=== PATIENT | male | born 1980 | race Caucasian/White ===

== ENCOUNTER 2016-08-19 15:24 | Emergency (ER) | payer MEDICAID ==
[2016-08-19 15:46] VITALS: BP 123/86
--- NOTE | 2016-08-19 16:47 | UC ---
Ear Complaint HPI - HPI Summary HPI Summary: Pt w/ acute onset Rt ear pain this morning. Pressure. Only other associated sx are sneezing w/ nasal congestion. Denies ST however swallowing makes Rt ear pain worse. Denies fever, chills, N/V, cough, chest pain, shortness of breath, QUEZADA/sinus pain, rash, neck pain. Nothing makes this better although he hasn't tried anything yet. Denies recent trauma to ear. H/o OM as a kid - nothing recently. NOTE: takes doxycycline for acne - History of Current Complaint Chief Complaint: UCEar Stated Complaint: EAR PAIN Time Seen by Provider: 08/19/16 16:23 Hx Obtained From: Patient - Allergies/Home Medications Allergies/Adverse Reactions: Allergies Allergy/AdvReac Type Severity Reaction Status Date / Time Prochlorperazine Allergy Severe See Comment Verified 08/19/16 15:39 [From Compazine] Home Medications: Home Medications Doxycycline (Monohydrate) [Doxycycline Monohydrate] 1 tab PO DAILY 08/19/16 [ History Confirmed 08/19/16] Meloxicam [Mobic] 1 tab PO BID 08/19/16 [History Confirmed 08/19/16] Pantoprazole TAB (NF) [Protonix TAB (NF)] 1 tab PO DAILY 08/19/16 [History Confirmed 08/19/16] QUEtiapine TAB* [Seroquel TAB*] 1 tab PO BEDTIME 08/19/16 [History Confirmed 06/06] PMH/Surg Hx/FS Hx/Imm Hx Previously Healthy: Yes Endocrine History Of: Denies: Diabetes, Thyroid Disease Cardiovascular History Of: Denies: Cardiac Disorders, Hypertension Respiratory History Of: Denies: COPD, Asthma GI/ History Of: Denies: Ulcer - Surgical History Surgical History: Yes Surgery Procedure, Year, and Place: Left Knee, exploratory and reconstructive. right wrist - exploratory and wafer procedure. 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 Smoking Status (MU): Current Every Day Smoker Type: Cigarettes Amount Used/How Often: 1/2 PPD Length of Time of Smoking/Using Tobacco: 20+ YEARS, 1/2 PPD Review of Systems Constitutional: Negative Skin: Negative Eyes: Negative ENT: Ear Ache - see HPI Respiratory: Negative Cardiovascular: Negative Gastrointestinal: Negative, Diarrhea - chronic d/t IBS - no change Motor: Negative Neurovascular: Negative Musculoskeletal: Negative Neurological: Negative Psychological: Negative All Other Systems Reviewed And Are Negative: Yes Physical Exam Triage Information Reviewed: Yes Appearance: Well-Appearing, No Pain Distress, Thin Vital Signs: Initial Vital Signs Temp 98.7 F 08/19/16 15:42 Pulse 73 08/19/16 15:42 Resp 16 08/19/16 15:42 BP 123/86 08/19/16 15:42 Pulse Ox 99 08/19/16 15:42 Vital Signs Reviewed: Yes Eye Exam: Normal Eyes: Positive: Conjunctiva Clear ENT Exam: Normal ENT: Positive: Hearing grossly normal, Pharynx normal - cobblestoning - no erythema, no edema, Nasal congestion - mild, Nasal drainage - scant w/ mild edema, TMs normal - EAC w/o erythema/edema. Negative: Pharyngeal erythema, Tonsillar swelling, Tonsillar exudate Dental Exam: Normal Dental: Negative: Abscess @ Neck exam: Normal Neck: Positive: Supple, Nontender, No Lymphadenopathy Respiratory Exam: Normal Respiratory: Positive: Lungs clear, Normal breath sounds, No respiratory distress. Negative: Crackles, Rhonchi, Stridor, Wheezing Cardiovascular Exam: Normal Cardiovascular: Positive: RRR Abdominal Exam: Normal Abdomen Description: Positive: Nontender, Soft Bowel Sounds: Positive: Present Musculoskeletal Exam: Normal Musculoskeletal: Positive: Strength Intact Neurological Exam: Normal Psychological Exam: Normal Skin Exam: Normal Ear Complaint Course/Dx - Course Course Of Treatment: Pt's ear pain appears to be the result of his nasal congestion. Advised to implement conservative care - if no relief, follow-up wt Pcp. - Differential Dx/Diagnosis Provider Diagnoses: Rt sided Otalgia, possible eustaschian tube d/o Discharge - Discharge Plan Condition: Stable Disposition: HOME Patient Education Materials: Earache (ED), Eustachian Tube Dysfunction (GEN) Referrals: [facility] PHYSICIAN REFERRAL [Outside] No Primary Care Phys,NOPCP [Primary Care Provider] - Additional Instructions: The cause of your ear pain today is suspected to be from nasal congestion. You may try ibuprofen as well as saline nasal spray, Sudafed and/or Afrin as directed to help with pain. Follow-up with PCP this week if symptoms persist. *If worse, return to UC or go to ED
== END 2016-08-19 16:49 | disposition home or self-care (01) ==
LOC: UCEAST 15:24
DX: H92.01 Otalgia, right ear (principal); R09.81 Nasal congestion; F17.210 Nicotine dependence, cigarettes, uncomplicated
CPT/HCPCS: 99211; G0463

== ENCOUNTER 2017-06-30 16:14 | Emergency (ER) | payer MEDICAID | END 2017-06-30 19:02 | disposition left against medical advice (07) | LOC: UCEAST 16:14 | DX: S00.521A Blister (nonthermal) of lip, initial encounter (principal); X58.XXXA Exposure to other specified factors, initial encounter; Y93.9 Activity, unspecified; Y92.9 Unspecified place or not applicable; Z53.21 Procedure and treatment not carried out due to patient leaving prior to being seen by health care provider ==

== ENCOUNTER 2017-09-07 19:49 | Emergency (ER) | payer MEDICAID ==
[2017-09-07 20:23] VITALS: BP 136/99
--- NOTE | 2017-09-07 20:49 | UC ---
Skin Complaint HPI - HPI Summary HPI Summary: Patient presents with over 2 month history of painless lesion on the inside of his left lower lip. He denies any trauma. He does not use smokeless tobacco. He is a smoker. Patient reports he periodically pokes it with a needle and drains serous fluid out of it. The lesion will then transiently reduce in size. He denies any fever, sweats, weight loss, weakness. - History of Current Complaint Chief Complaint: UCGeneralIllness Time Seen by Provider: 09/07/17 20:17 Stated Complaint: SORE IN MOUTH Hx Obtained From: Patient Onset/Duration: Sudden Onset, Lasting Weeks, Still Present Timing: Constant Onset Severity: Moderate Current Severity: Moderate Pain Intensity: 2 Pain Scale Used: 0-10 Numeric Location: Other - LEFT INNER LOWER LIP Aggravating Factor(s): Nothing Alleviating Factor(s): Nothing Associated Signs & Symptoms: Positive: Negative - Allergy/Home Medications Allergies/Adverse Reactions: Allergies Allergy/AdvReac Type Severity Reaction Status Date / Time MS Prochlorperazine Allergy Severe See Comment Verified 09/07/17 20:23 [From Compazine] Review of Systems Constitutional: Negative Skin: Other - LOWER LIP LESION Respiratory: Negative Cardiovascular: Negative Gastrointestinal: Negative All Other Systems Reviewed And Are Negative: Yes PMH/Surg Hx/FS Hx/Imm Hx Other GI/ History: HEP C Psychological History: Bipolar Disorder - Surgical History Surgical History: Yes Surgery Procedure, Year, and Place: Left Knee, exploratory and reconstructive. right wrist - exploratory and wafer procedure. 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 Smoking Status (MU): Heavy Every Day Tobacco Smoker Type: Cigarettes Amount Used/How Often: 1 PPD Length of Time of Smoking/Using Tobacco: 20+ YEARS, 1/2 PPD Physical Exam Triage Information Reviewed: Yes Appearance: Well-Appearing, No Pain Distress, Well-Nourished Vital Signs: Initial Vital Signs Temp 98.5 F 09/07/17 20:17 Pulse 86 09/07/17 20:17 Resp 18 09/07/17 20:17 BP 136/99 09/07/17 20:17 Pulse Ox 99 09/07/17 20:17 Vital Signs Reviewed: Yes Eyes: Positive: Conjunctiva Clear ENT: Positive: Hearing grossly normal Neck: Positive: Supple, Nontender, No Lymphadenopathy Respiratory Exam: Normal Cardiovascular Exam: Normal Abdomen Description: Positive: Soft Musculoskeletal: Positive: No Edema Neurological: Positive: Alert Psychological: Positive: Age Appropriate Behavior Skin: Positive: Other - 6MM DIAMETER NON TENDER, FIRM NODULE PALPATED INSIDE LOWER LIP JUST LEFT OF MIDLINE Course/Dx - Course Course Of Treatment: Unclear etiology of the lesion on the patient's lip. Advised it needs to be either biopsied or excised completely. Have referred him to oral surgery and failing that have also given contact information for general surgery and dermatology. - Diagnoses Provider Diagnoses: SKIN LESION INNER LOWER LIP, NOS Discharge - Sign-Out/Discharge Documenting (check all that apply): Discharge - Discharge Plan Condition: Stable Disposition: HOME Referrals: Joanne Basurto MD [Medical Doctor] - Js Rodriguez MD [Doctor of Dental Medicine] - Rafael Joy MD [Primary Care Provider] - If Needed Additional Instructions: The lesion in your mouth needs to be removed. Call oral surgery to schedule an appt to be seen. If they are not available or do not do this procedure try general surgery or dermatology. DERMATOLOGY IN [place] Dr. Tamara Langley Address: [address] [place] [address] [address] [place] [address] DR. JUAN CARLOS [facility] [address] [place] [id number] [address] DESHAUN MARIEE [facility], [facility] [address]; [address] [place] [address] - Billing Disposition and Condition Condition: STABLE Disposition: HOME
== END 2017-09-07 20:45 | disposition home or self-care (01) ==
LOC: UCEAST 19:49
DX: K13.0 Diseases of lips (principal); B19.20 Unspecified viral hepatitis C without hepatic coma; F31.9 Bipolar disorder, unspecified; Z88.8 Allergy status to other drugs, medicaments and biological substances; F17.210 Nicotine dependence, cigarettes, uncomplicated
CPT/HCPCS: 99211; G0463

== ENCOUNTER 2018-04-17 16:13 | Emergency (ER) | payer MEDICAID ==
[2018-04-17 16:28] VITALS: BP 125/101
--- NOTE | 2018-04-17 16:44 | UC ---
Skin Complaint HPI - HPI Summary HPI Summary: 38-year-old male comes to clinic today with a chief complaint of swelling and erythema on his left cheek. Patient does have a history of acne. Her last several days this area is gotten red and swollen. It's tender to palpation it' s less tender when you don't touch it. Chills feels well otherwise. He had a similar abscess that was quite large on the right side of his face that was I&D in the past. - History of Current Complaint Chief Complaint: UCSkin Time Seen by Provider: 04/17/18 16:27 Stated Complaint: SORE ON FACE Pain Intensity: 2 - Allergy/Home Medications Allergies/Adverse Reactions: Allergies Allergy/AdvReac Type Severity Reaction Status Date / Time prochlorperazine Allergy See Comment Verified 04/17/18 16:18 Home Medications: Home Medications Acetaminophen [Tylenol Extra Strength] 1,000 mg PO Q12HR PRN 04/17/18 [History Confirmed 04/17/18] Naproxen Sodium [Aleve] 2 tab PO Q12HR PRN 04/17/18 [History Confirmed 04/17/18] RiFAXimin* [Xifaxan*] 2 PO BID 04/17/18 [History] Review of Systems All Other Systems Reviewed And Are Negative: Yes Constitutional: Positive: Negative Skin: Positive: Other - SEE HPI Eyes: Positive: Negative ENT: Positive: Negative Respiratory: Positive: Negative Cardiovascular: Positive: Negative Gastrointestinal: Positive: Negative Motor: Positive: Negative Neurovascular: Positive: Negative Musculoskeletal: Positive: Negative Neurological: Positive: Negative Psychological: Positive: Negative Is Patient Immunocompromised?: No PMH/Surg Hx/FS Hx/Imm Hx Previously Healthy: Yes GI/ History: Gastroesophageal Reflux - Surgical History Surgical History: Yes Surgery Procedure, Year, and Place: Left Knee, exploratory and reconstructive. right wrist - exploratory and wafer procedure. 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 Smoking Status (MU): Heavy Every Day Tobacco Smoker Type: Cigarettes Amount Used/How Often: 1 PPD Length of Time of Smoking/Using Tobacco: 20+ YEARS, 1/2 PPD - Immunization History Most Recent Tetanus Shot: within 10 years Physical Exam Triage Information Reviewed: Yes Appearance: Well-Appearing, No Pain Distress, Well-Nourished Vital Signs: Initial Vital Signs Temp 99.0 F 04/17/18 16:23 Pulse 100 04/17/18 16:23 Resp 18 04/17/18 16:23 BP 125/101 04/17/18 16:23 Pulse Ox 96 04/17/18 16:23 Vital Signs Reviewed: Yes Eye Exam: Normal Eyes: Positive: Conjunctiva Clear ENT: Negative: Nasal congestion, Nasal drainage Neck exam: Normal Neck: Positive: Supple Respiratory: Positive: No respiratory distress Musculoskeletal Exam: Normal Musculoskeletal: Positive: Strength Intact, ROM Intact Neurological Exam: Normal Neurological: Positive: Alert, Muscle Tone Normal Psychological Exam: Normal Psychological: Positive: Age Appropriate Behavior Skin: Positive: Other - Are left cheek there is a 1 cm erythematous raised area that's tender to palpation which is consistent with a follicular abscess. At this time was not large enough for incision and drainage. Course/Dx - Diagnoses Provider Diagnosis: Abscess, Acne Discharge - Sign-Out/Discharge Documenting (check all that apply): Patient Departure All imaging exams completed and their final reports reviewed: No Studies - Discharge Plan Condition: Stable Disposition: HOME Prescriptions: DOXYcycline CAP(*) [DOXYcycline 100MG CAP(*)] 100 mg PO BID #20 cap Patient Education Materials: Abscess (ED) Referrals: Rafael Joy MD [Primary Care Provider] - Additional Instructions: FOLLOW UP WITH YOUR DOCTOR IF NOT COMPLETELY IMPROVED. GET RECHECKED FOR ANY WORSENING OF YOUR CONDITION OR QUESTIONS OR CONCERNS. - Billing Disposition and Condition Condition: STABLE Disposition: Home
== END 2018-04-17 16:51 | disposition home or self-care (01) ==
LOC: UCEAST 16:13
DX: L02.01 Cutaneous abscess of face (principal); L70.9 Acne, unspecified; Z88.8 Allergy status to other drugs, medicaments and biological substances; F17.210 Nicotine dependence, cigarettes, uncomplicated
CPT/HCPCS: 99212; G0463

== ENCOUNTER 2018-05-21 16:19 | Emergency (ER) | payer MEDICAID ==
--- NOTE | 2018-05-21 17:18 | ED ---
GI/ HPI - HPI Summary HPI Summary: This patient is a 38 year old M presenting to [facility] with a chief complaint of bright red blood in the stool for the last two days. He states that he has passed blood with every stool. The patient rates the pain 2/10 in severity. Patient denies constipation and diarrhea (increased from baseline). No hx of hemorrhoids. Does have chronic IBS and has had multiple colonoscopies constipation and diarrhea. Pt has chronic diarrhea. - History of Current Complaint Chief Complaint: EDGIBleed Time Seen by Provider: 05/21/18 17:07 Stated Complaint: RECTAL BLEEDING Hx Obtained From: Patient Onset/Duration: Started Days Ago, Still Present Timing: Intermittent Severity: Moderate Current Severity: Moderate Vaginal Bleeding Description: Bright Red Pain Intensity: 2 Associated Signs and Symptoms: Positive: Negative - constipation and diarrhea - Allergy/Home Medications Allergies/Adverse Reactions: Allergies Allergy/AdvReac Type Severity Reaction Status Date / Time adhesive Allergy See Comment Verified 05/21/18 16:26 prochlorperazine Allergy See Comment Verified 04/17/18 16:18 PMH/Surg Hx/FS Hx/Imm Hx Endocrine/Hematology History: Denies: Hx Diabetes, Hx Thyroid Disease Cardiovascular History: Denies: Hx Hypertension Respiratory History: Denies: Hx Asthma, Hx Chronic Obstructive Pulmonary Disease (COPD) GI History: Denies: Hx Ulcer Psychiatric History: Denies: Hx Eating Disorder - Surgical History Surgery Procedure, Year, and Place: Left Knee, exploratory and reconstructive. right wrist - exploratory and wafer procedure. 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 Smoking Status (MU): Heavy Every Day Tobacco Smoker Type: Cigarettes Amount Used/How Often: 1 PPD Length of Time of Smoking/Using Tobacco: 20+ YEARS, 1/2 PPD Review of Systems Negative: Fever, Chills Negative: Erythema Negative: Sore Throat Negative: Chest Pain Negative: Shortness Of Breath, Cough Gastrointestinal: Negative - constipation , Other - blood in stool Negative: Abdominal Pain, Vomiting, Diarrhea, Nausea Negative: dysuria, hematuria Negative: Myalgia, Edema Negative: Rash Neurological: Negative - dizziness All Other Systems Reviewed And Are Negative: Yes Physical Exam - Summary Physical Exam Summary: Constitutional: Well-developed, Well-nourished, Alert. (-) Distressed Skin: Warm, Dry HENT: Normocephalic; Atraumatic Eyes: Conjunctiva normal Neck: Musculoskeletal ROM normal neck. (-) JVD, (-) Stridor, (-) Tracheal deviation Cardio: Rhythm regular, rate normal, Heart sounds normal; Intact distal pulses; The pedal pulses are 2+ and symmetric. Radial pulses are 2+ and symmetric. (-) Murmur Pulmonary/Chest wall: Effort normal. (-) Respiratory distress, (-) Wheezes, (-) Rales Abd: Soft, (-) epigastric tenderness, (-) Distension, (-) Guarding, (-) Rebound Musculoskeletal: (-) Edema Lymph: (-) Cervical adenopathy Neuro: Alert, Oriented x3 Psych: Mood and affect Normal Rectal: no hemorrhoids only a small amount of mucus. Triage Information Reviewed: Yes Vital Signs On Initial Exam: Initial Vitals Temp Pulse Resp BP Pulse Ox 98.6 F 96 18 147/87 99 05/21/18 16:20 05/21/18 16:20 05/21/18 16:20 05/21/18 16:20 05/21/18 16:20 Vital Signs Reviewed: Yes Diagnostics - Vital Signs Vital Signs Temp Pulse Resp BP Pulse Ox 05/21/18 16:20 98.6 F 96 18 147/87 99 - Laboratory Result Diagrams: 05/21/18 17:49 05/21/18 17:49 Lab Statement: Any lab studies that have been ordered have been reviewed, and results considered in the medical decision making process. GIGU Course/Dx - Course Assessment/Plan: This patient is a 38 year old M presenting to [facility] with a chief complaint of bright red blood in the stool for the last two days. He states that he has passed blood with every stool. The patient rates the pain 2/ 10 in severity. Patient denies constipation and diarrhea (increased from baseline). No hx of hemorrhoids. Does have chronic IBS and has had multiple colonoscopies constipation and diarrhea. Pt has chronic diarrhea. . Bloodwork obtained. Despite experiencing 3 days of bleeding the hemoglobin is completely normal. There is no huy blood on exam and vitals are stable. Patient will be discharged and follow up from GI. The patient is agreeable with this plan. - Diagnoses Provider Diagnoses: Rectal bleeding Discharge - Sign-Out/Discharge Documenting (check all that apply): Patient Departure - departed - Discharge Plan Condition: Stable Disposition: HOME Patient Education Materials: Rectal Bleeding (ED) Referrals: Estefany Degroot MD [Medical Doctor] - Annita Grace MD [Medical Doctor] - 2 Days Additional Instructions: Please follow up with your GI doctor is 2-3 days. If they cannot get you in I have provided you with the GI doctor guncotton packer. RETURN TO THE EMERGENCY DEPARTMENT FOR CHANGING OR WORSENING SYMPTOMS. - Billing Disposition and Condition Condition: STABLE Disposition: Home - Attestation Statements Document Initiated by Tello: Yes Documenting Scribe: Dakota Joseph Provider For Whom Tello is Documenting (Include Credential): Hank Kelly MD Scribe Attestation: Dakota Salgado , scribed for Hank Kelly MD on 05/27/18 at 0728. Scribe Documentation Reviewed: Yes Provider Attestation: The documentation as recorded by the Dakota moses accurately reflects the service I personally performed and the decisions made by Hank santos MD Status of Scribe Document: Viewed
[2018-05-21 17:57] LABS: ABS Basophils 0 10^3/ul (0-0.2); ABS Eosinophils 0.1 10^3/ul (0-0.6); ABS Lymphocytes 1.1 10^3/ul (1.0-4.8); ABS Monocytes 0.3 10^3/ul (0-0.8); ABS Neutrophils 4.1 10^3/ul (1.5-7.7); ABS Nucleated RBC 0 10^3/ul; Hematocrit 48 % (42-52); Hemoglobin 16.5 g/dl (14.0-18.0); Lymphocyte % 19.3 %; Mean Corpuscular HGB Conc 34 g/dl (31-36); Mean Corpuscular Hemoglobin 30 pg (27-31); Mean Corpuscular Volume 87 fL (80-94); Mean Platelet Volume 7.8 fL (7.4-10.4); Nucleated Red Blood Cells % 0.1; Platelet Count 221 10^3/ul (150-450); Red Blood Count 5.54 10^6/ul (4.00-5.40); Red Cell Distribution Width 13 % (10.5-15); White Blood Count 5.6 10^3/ul (3.5-10.8)
[2018-05-21 18:15] LABS: ALT 13 U/L (7-52); AST 13 U/L (13-39); Albumin 4.4 g/dL (3.2-5.2); Alkaline Phosphatase 49 U/L (34-104); Anion Gap 4 mmol/L (2-11); Blood Urea Nitrogen 21 mg/dL (6-24); C Reactive Protein < 1.00 mg/L (<8.01); CO2 Carbon Dioxide 30 mmol/L (22-32); Calcium 9.6 mg/dL (8.6-10.3); Chloride 105 mmol/L (101-111); EGFR Non-African American 78.2 (>60); Globulin 2.2 g/dL (2-4); Glucose 86 mg/dL (70-100); Potassium 4.5 mmol/L (3.5-5.0); Sodium 139 mmol/L (135-145); Total Protein 6.6 g/dL (6.4-8.9)
[2018-05-21 18:45] VITALS: BP 132/91
== END 2018-05-21 18:44 | disposition home or self-care (01) ==
LOC: ED 16:19
DX: K62.5 Hemorrhage of anus and rectum (principal); Z88.8 Allergy status to other drugs, medicaments and biological substances; Z91.048 Other nonmedicinal substance allergy status; F17.210 Nicotine dependence, cigarettes, uncomplicated
CPT/HCPCS: 36415; 80053; 82272; 83605; 83690; 85025; 86140; 99282

== ENCOUNTER 2019-02-10 22:54 | Emergency (ER) | payer MEDICAID ==
[2019-02-10 23:02] VITALS: BP 141/102
--- OUTSIDE RECORDS SUMMARY | 2019-02-10 23:06 | XMS REPORT | Summary of Care ---
:1980 Author Organization [facility] Address [address] [facility] [place] [address] Care Team Providers Name Role Phone Rafael Joy MD Primary Care Provider Reason for Visit Reason Comments Follow Up IBS Encounter Details Date Type Department Care Team Description 01/09/2019 Office Visit Jeff Steiner Irritable bowel Gastroenterology/Eneida Frausto NP syndrome with tology 1 KENNEY SQ diarrhea (Primary Dx) [address] [facility] [place] [place] [address] [place] [address] [phone] Allergies Active Allergy Reactions Severity Noted Date Comments Compazine Cardiac Reaction High 10/05/2015 Bradycardia documented as of this encounter (statuses as of 01/09/2019) Medications Medication Sig Dispensed Refills Start Date End Date Status pantoprazole take 1 90 Tab 3 07/30/2018 Active (PROTONIX) 40 MG tablet by Oral Tab EC mouth once daily acetaminophen Take 500 mg 0 Active (TYLENOL) 500 MG by mouth Oral Tab EVERY SIX HOURS NEEDED for Pain. Quetiapine Fumarate take 1 to 2 60 Tab 4 12/02/2018 Active (SEROQUEL) 50 MG tablets by Oral TabIndications: mouth once Chronic insomnia daily at bedtime cyclobenzaprine Take 1 Tab 30 Tab 5 12/04/2018 Active (FLEXERIL) 10 MG by mouth Oral Tab EVERY BEDTIME. diclofenac Take 50 mg 0 Active (VOLTAREN) 50 MG by mouth Oral Tab EC TWICE DAILY. diphenoxylate-atropi Take 1 Tab 90 Tab 5 01/09/2019 Active ne (LOMOTIL) by mouth 2.5-0.025 MG Oral THREE TIMES TabIndications: DAILY. Max Irritable bowel Daily syndrome with Amount: 3 diarrhea Tabs. diphenoxylate-atropi Take 1 Tab 90 Tab 0 12/04/2018 Discontinued ne (LOMOTIL) by mouth 9 (Reorder) 2.5-0.025 MG Oral THREE TIMES TabIndications: DAILY. Max Irritable bowel Daily syndrome with Amount: 3 diarrhea Tabs. documented as of this encounter (statuses as of 01/09/2019) Active Problems Problem Noted Date Chronic hepatitis C without hepatic coma 11/29/2017 Chronic insomnia 10/05/2016 History of hepatitis C 12/16/2014 Overview: Secondary to IVDU, s/p Harvoni [address] Grace Substance abuse 04/21/2014 [facility]: [facility] November 2014 counseling three times weekly Clean since 10/2014 IBS (irritable bowel syndrome) 04/21/2014 Overview: chronic abdominal pain, negative endoscopies 2009 and prior, failed symptomatic medical management, complicated by prescription and IV drug abuse Tobacco use disorder 04/21/2014 Overview: 1/4 pack per day began age 13 Failed varenicline documented as of this encounter (statuses as of 01/09/2019) Social History Tobacco Use Types Packs/Day Years Used Date Current Every Day Smoker Cigarettes 0.75 22 Smokeless Tobacco: Never Used Alcohol Use Drinks/Week oz/Week Comments No Sex Assigned at Date Recorded Not on file Job Start Date Occupation Industry Not on file Not on file Not on file Travel History Travel Start Travel End No recent travel history available. documented as of this encounter Last Filed Vital Signs Vital Sign Reading Time Taken Comments Blood Pressure 122/70 01/09/2019 2:43 PM EDT Pulse 80 01/09/2019 2:43 PM EDT Temperature - - Respiratory Rate - - Oxygen Saturation - - Inhaled Oxygen Concentration - - Weight 77.1 kg (170 lb) 01/09/2019 2:43 PM EDT Height 180.3 cm (5' 11") 01/09/2019 2:43 PM EDT Body Mass Index 23.71 01/09/2019 2:43 PM EDT documented in this encounter Patient Instructions Patient InstructionsGina Steiner NP - 01/09/2019 2:40 PM EDT1. Continue the Lomotil as directed, lowest effective dose is always advised 2. Follow up in 6 months, sooner with any changes Thank you for choosing the [facility] for your needs today! -Gina Steiner N.P. , Please call if you need to cancel or change your appt. time. Thank you for choosing [facility] for your health care needs, and for consulting with [facility] today. You may receive a survey following this visit, or after an upcoming hospital stay. As easy as it is to feel overloaded with surveys, we are required to send them out randomly and they do provide important feedback so that we may serve your needs in the best way. Please do take the few minutes required to complete the survey if you receive one. We get them too, after seeing the doctor, and they only take a few minutes to complete. documented in this encounter Progress Notes Gina Steiner NP - 01/09/2019 2:40 PM EDT PATIENT: Tim Felton : 1980 DATE OF SERVICE: 01/09/2019 REFERRING PRACTITIONER: Gina Steiner PRIMARY CARE PROVIDER: Rafael Joy CHIEF COMPLAINT: Chief Complaint Patient presents with Follow Up IBS Subjective HISTORY OF PRESENT ILLNESS: Tim Felton is a 38-y.o. male who presents for a follow-up. He reports abdominal pain, diarrhea cycles. Currently on Lomotil TID with 50% improvement in symptoms. Defecation occurs 5 time(s) per day and is described as being loose. He had previously failed several other medications in the past, ie. Viberzi, Imodium, hyoscamine, Xifaxan, fiber supplements and dietary modification. Last colonoscopy 2015 was unremarkable. Denies heartburn, dysphagia, fatigue, nausea, vomiting, melena, hamatemesis, hematochezia, constipation, diarrhea, jaundice, fevers, chills, night sweats, weight loss, easy bruising, chest pain, shortness of breath, dysuria, hematuria , pyuria, joint pains, acholic stools, dark urine or systemic pruritis. Past Medical History: Diagnosis Date GERD (gastroesophageal reflux disease) High cholesterol Past Surgical History: Procedure Laterality Date COLONOSCOPY N/A 01/17/2016 Procedure: COLONOSCOPY with biopsies; Surgeon: Tim Olsen MD FAC; Location: [facility] MAIN OR COLONOSCOPY DIAGNOSTIC approx. 2 years ago EGD (KENNEY / NON KENNEY) 3-4 years ago No family history on file. Current Outpatient Medications Medication Sig acetaminophen (TYLENOL) 500 MG Oral Tab Take 500 mg by mouth EVERY SIX HOURS NEEDED for Pain. cyclobenzaprine (FLEXERIL) 10 MG Oral Tab Take 1 Tab by mouth EVERY BEDTIME. diclofenac (VOLTAREN) 50 MG Oral Tab EC Take 50 mg by mouth TWICE DAILY. diphenoxylate-atropine (LOMOTIL) 2.5-0.025 MG Oral Tab Take 1 Tab by mouth THREE TIMES DAILY.Max Daily Amount: 3 Tabs. pantoprazole (PROTONIX) 40 MG Oral Tab EC take 1 tablet by mouth once daily Quetiapine Fumarate (SEROQUEL) 50 MG Oral Tab take 1 to 2 tablets by mouth once daily at bedtime No current facility-administered medications for this visit. Allergies Allergen Reactions Compazine Cardiac Reaction Bradycardia Social History Socioeconomic History Marital status: Single Spouse name: Not on file Number of children: Not on file Years of education: Not on file Highest education level: Not on file Occupational History Not on file Social Needs Financial resource strain: Not on file Food insecurity: Worry: Not on file Inability: Not on file Transportation needs: Medical: Not on file Non-medical: Not on file Tobacco Use Smoking status: Current Every Day Smoker Packs/day: 0.75 Years: 22.00 Pack years: 16.50 Types: Cigarettes Smokeless tobacco: Never Used Substance and Sexual Activity Alcohol use: No Drug use: No Comment: heroin, marijuana, clean 90 days as of 12-17-14 Sexual activity: Yes Partners: Female Lifestyle Physical activity: Days per week: Not on file Minutes per session: Not on file Stress: Not on file Relationships Social connections: Talks on phone: Not on file Gets together: Not on file Attends orthodox service: Not on file Active member of club or organization: Not on file Attends meetings of clubs or organizations: Not on file Relationship status: Not on file Intimate partner violence: Fear of current or ex partner: Not on file Emotionally abused: Not on file Physically abused: Not on file Forced sexual activity: Not on file Other Topics Concern Back Care Not Asked Bike Helmet Not Asked Blood Transfusions Not Asked Caffeine Concern No Exercise Yes Comment: gym workouts [employer] Hobby Hazards Not Asked International Travel Not Asked Service Not Asked Occupational Exposure Not Asked Seat Belt Not Asked Self-Exams Not Asked Sleep Concern No Special Diet No Stress Concern No Weight Concern No Social History Narrative Living with parents in [facility] One daughter age 6 Has girlfriend . Unemployed. Disabled by irritable bowel syndrome. REVIEW OF SYSTEMS: All remaining review of systems was negative except for as noted in the history of present illness/subjective. Objective PHYSICAL EXAMINATION: VITALS: BP 122/70 (BP Location: Right arm, Patient Position: Sitting) | Pulse 80 | Ht 5' 11" (1.803 m) | Wt 170 lb (77.1 kg) | BMI 23.71 kg/m Body mass index is 23.71 kg/m. GENERAL: alert, oriented, no acute distress. HEENT: No scleral icterus, MMM Psych: Affect normal Neck: no lymphadenopathy LUNGS: clear to auscultation bilaterally. HEART: regular rhythm, no murmurs, no gallops, no rubs. ABDOMEN: general exam: soft, non-tender, non-distended, without masses or organomegaly, normal active bowel sounds, Malave's sign negative. Extrmities: no edema Skin: clear Neuro: gait normal, a&o x 3 RECTAL: exam deferred. Plan IMPRESSION/PLAN: ICD-9-CM ICD-10-CM 1. Irritable bowel syndrome with diarrhea 564.1 K58.0 diphenoxylate-atropine ( LOMOTIL) 2.5-0.025 MG Oral Tab Patient Instructions 1. Continue the Lomotil as directed, lowest effective dose is always advised 2. Follow up in 6 months, sooner with any changes Thank you for choosing the [facility] for your needs today! -Gina Steiner N.P. , Please call if you need to cancel or change your appt. time. Thank you for choosing [facility] for your health care needs, and for consulting with [facility] today. You may receive a survey following this visit, or after an upcoming hospital stay. As easy as it is to feel overloaded with surveys, we are required to send them out randomly and they do provide important feedback so that we may serve your needs in the best way. Please do take the few minutes required to complete the survey if you receive one. We get them too, after seeing the doctor, and they only take a few minutes to complete. Author: Gina Steiner NP 01/09/2019 15:11 documented in this encounter Plan of Treatment Date Type Specialty Care Team Description 01/21/2019 Office Visit Gastroenterology Gina Steiner NP [address] [place] [place] [address] [phone] 01/27/2019 Office Visit Physical Therapy Annita Robert, PT [address] [place] [address] 01/30/2019 Office Visit Physical Therapy Annita Robert, PT [address] [place] [address] 02/03/2019 Office Visit Physical Therapy Annita Robert, PT [address] [place] [address] 02/06/2019 Office Visit Physical Therapy Annita Robert, PT [address] [place] [address] 02/11/2019 Office Visit Physical Therapy Annita Robert, PT [address] [place] [address] [phone] 07/10/2019 Office Visit Gastroenterology Gina Steiner NP [address] [place] [place] [address] [phone] Health Maintenance Due Date Last Done Comments PNEUMOCOCCAL 0-64 YRS ( - 02/02/1984 PPSV23) HIV SCREENING 1993 LIPID DISORDER SCREENING 02/02/1996 INFLUENZA VACCINE (#1) 2019 DEPRESSION SCREENING 12/05/2019 12/04/2018 HPV IMMUNIZATION SERIES Aged Out No longer eligible based on patient's age to complete this topic MENINGOCOCCAL VACCINE IMM Aged Out No longer eligible based on patient's age to complete this topic documented as of this encounter Results Not on filedocumented in this encounter Visit Diagnoses Diagnosis Irritable bowel syndrome with diarrhea - Primary Irritable bowel syndrome documented in this encounter Additional Health Concerns Infection Noted Time Resolved Time C Diff 02/16/2018 6:18 AM EDT documented as of this encounter Insurance Payer Benefit Plan / Subscriber ID Effective Dates Phone Address Type Group [place] xxxxxxxx 2016-Present Medicaid [place] Guarantor Name Account Type Relation to Date of Phone Billing Patient Address Tim Felton Personal/Family [address] (Home) [place], [facility] (Work) documented as of this encounter
--- OUTSIDE RECORDS SUMMARY | 2019-02-10 23:06 | XMS REPORT | Summary of Care ---
:1980 Author Organization [facility] Address [address] [place] [place] [place] [address] Care Team Providers Name Role Phone Rafael Joy MD Primary Care Provider Reason for Visit Reason Comments Neck Pain Encounter Details Date Type Department Care Team Description 01/27/2019 Office Visit [facility] - Annita Robert, TONYA Cervicalgia (Primary [place] [facility] [address] Dx) Therapy [place] [address] [employer] [facility] [phone] [address] [place] [address] Allergies Active Allergy Reactions Severity Noted Date Comments Compazine Cardiac Reaction High 10/05/2015 Bradycardia documented as of this encounter (statuses as of 01/27/2019) Medications Medication Sig Dispensed Refills Start Date End Date Status pantoprazole (PROTONIX) take 1 tablet by 90 Tab 3 07/30/2018 Active 40 MG Oral Tab EC mouth once daily acetaminophen (TYLENOL) Take 500 mg by 0 Active 500 MG Oral Tab mouth EVERY SIX HOURS NEEDED for Pain. Quetiapine Fumarate take 1 to 2 60 Tab 4 12/02/2018 Active (SEROQUEL) 50 MG Oral tablets by mouth TabIndications: Chronic once daily at insomnia bedtime cyclobenzaprine Take 1 Tab by 30 Tab 5 12/04/2018 Active (FLEXERIL) 10 MG Oral mouth EVERY Tab BEDTIME. diclofenac (VOLTAREN) 50 Take 50 mg by 0 Active MG Oral Tab EC mouth TWICE DAILY. diphenoxylate-atropine Take 1 Tab by 90 Tab 5 01/09/2019 Active (LOMOTIL) 2.5-0.025 MG mouth THREE Oral TabIndications: TIMES DAILY. Max Irritable bowel syndrome Daily Amount: 3 with diarrhea Tabs. documented as of this encounter (statuses as of 01/27/2019) Active Problems Problem Noted Date Chronic hepatitis C without hepatic coma 11/29/2017 Chronic insomnia 10/05/2016 History of hepatitis C 12/16/2014 Overview: Secondary to IVDU, s/p Harvoni [address] Grace Substance abuse 04/21/2014 Overview: Heroin IVDA 2013 S/p [place] [facility] stay October 2014 Alcohol and drug [place] [facility] November 2014 counseling three times weekly Clean since 10/2014 IBS (irritable bowel syndrome) 04/21/2014 Overview: chronic abdominal pain, negative endoscopies 2009 and prior, failed symptomatic medical management, complicated by prescription and IV drug abuse Tobacco use disorder 04/21/2014 Overview: 1/4 pack per day began age 13 Failed varenicline documented as of this encounter (statuses as of 01/27/2019) Social History Tobacco Use Types Packs/Day Years [...] of this encounter Last Filed Vital Signs Not on filedocumented in this encounter Progress Notes Annita Robert, PT - 01/27/2019 4:00 PM EDT [facility] Treatment Note Outpatient Physical Therapy [facility] [address] [place] [id number] Treatment Number: 2 Referring Physician: Rafael Joy Primary Diagnosis: ICD-9-CM ICD-10-CM 1. Cervicalgia 723.1 M54.2 Time In: 1600 Time Out: 1630 Pain at Start of Care: 3 Pain at End of Care: 07/28 Subjective Comments: He had a bad day on Sunday had to take a long shower to loosen up the neck muscles. Interventions: Therapeutic Exercises (00871) Number of Exercises?: 3 Total Minutes (all Therapeutic Exercise): 10 Exercise #1 Exercise Name: seated trapezius stretch Reason for Exercise: Functional Mobility;Muscle Performance Location/Body Area: Cervical Spine;Shoulder Exercise #2 Exercise Name: doorway stretches Reason for Exercise: Functional Mobility;Muscle Performance;Pain Control Location/Body Area: Cervical Spine;Shoulder Manual Therapy (32300) Soft Tissue Mobilization: Manual Tissue Mobilization Soft Tissue Mobilization Details: left trap Total Minutes (All Manual Therapy): 20 Assessment: Today with left rotation it was full and no rastafari pain. He sits with head and chin in protraction working on retraction. He was given written instructions for stretches after we reviewed them Plan for Next Visit: assess posture and stretches and start b/p cuff. Total UNTIMED Code Treatment Minutes: Total TIMED Code Treatment Minutes: 30 Total Treatment Minutes: 30 Author: Annita Robert, PT 01/27/2019 16:26 documented in this encounter Plan of Treatment Date Type Specialty Care Team Description 01/30/2019 Office Visit Physical Therapy Annita Robert, PT [address] [place] [address] [phone] 02/03/2019 Office Visit Physical Therapy Annita Robert, PT [address] [place] [address] [phone] 02/06/2019 Office Visit Physical Therapy Annita Robert, PT [address] [place] [address] [phone] 02/11/2019 Office Visit Physical Therapy Annita Robert, PT [address] [place] [address] [phone] 07/10/2019 Office Visit Gastroenterology Gina Steiner, GRISELDA [address] [place] [place] [address] [phone] Health Maintenance Due Date Last Done Comments PNEUMOCOCCAL 0-64 YRS (1 of 1 - 02/02/1984 PPSV23) HIV SCREENING 1993 LIPID [...] filedocumented in this encounter Visit Diagnoses Diagnosis Cervicalgia - Primary documented in this encounter Additional Health Concerns Infection Noted Time Resolved Time C Diff 02/16/2018 6:18 AM EDT documented as of this encounter Insurance Payer Benefit Plan / Subscriber ID Effective Dates Phone Address Type Group [place] xxxxxxxx 2016-Present [place] (Work) documented as of this encounter
--- OUTSIDE RECORDS SUMMARY | 2019-02-10 23:06 | XMS REPORT | Summary of Care ---
:1980 Author Organization [facility] Address [address] [place] [address] Care Team Providers Name Role Phone Rafael Joy MD Primary Care Provider Reason for Visit Reason Comments Neck Pain Encounter Details Date Type Department Care Team Description 02/06/2019 Office Visit [facility] - Annita Robert, TONYA Cervicalgia (Primary [place] [facility] [address] Dx) Therapy [place] [address] [facility] [phone] [place] [address] Allergies Active Allergy Reactions Severity Noted Date Comments Compazine Cardiac Reaction High 10/05/2015 Bradycardia documented as of this encounter (statuses as of 02/06/2019) Medications Medication Sig Dispensed Refills Start Date End Date Status acetaminophen (TYLENOL) Take 500 mg by 0 [...] syndrome Daily Amount: 3 with diarrhea Tabs. pantoprazole (PROTONIX) Take 1 Tab by 90 Tab 3 01/30/2019 Active 40 MG Oral Tab EC mouth DAILY. documented as of this encounter (statuses as of 02/06/2019) Active Problems Problem Noted Date Chronic hepatitis C without hepatic coma 11/29/2017 Chronic insomnia 10/05/2016 History of hepatitis C 12/16/2014 Overview: Secondary to IVDU, s/p Harvoni [address] Grace Substance abuse 04/21/2014 Overview: Heroin IVDA 2013 S/p [place] rehab stay October 2014 Alcohol and drug [place] [facility] November 2014 counseling three times weekly Clean since 10/2014 IBS (irritable bowel syndrome) 04/21/2014 Overview: chronic abdominal pain, negative endoscopies 2009 and prior, failed symptomatic medical management, complicated by prescription and IV drug abuse Tobacco use disorder 04/21/2014 Overview: 1/4 pack per day began age 13 Failed varenicline documented as of this encounter (statuses as of 02/06/2019) Social History Tobacco Use Types Packs/Day Years [...] encounter Progress Notes Annita Robert, PT - 02/06/2019 4:00 PM EDT [facility] Treatment Note Outpatient Physical Therapy Services [facility] [address] [place] [phone] Treatment Number: 4 Referring Physician: Rafael Joy Primary Diagnosis: ICD-9-CM ICD-10-CM 1. Cervicalgia 723.1 M54.2 Time In: 1600 Time Out: 1630 Pain at Start of Care: 3/10 Pain at End of Care: 210 Subjective Comments: Overall he feels 25% better. He is having some low back pain today. Interventions: Therapeutic Exercises (91639) Total Minutes (all Therapeutic Exercise): 20 Exercise #1 Exercise Name: supine anterior neck flexors Reason for Exercise: Other (see Comments)(stability) Location/Body Area: Cervical Spine Exercise #2 Exercise Name: neck extensors with b/p cuff Reason for Exercise: Strengthening Location/Body Area: Cervical Spine Exercise #3 Exercise Name: doorway stretches Reason for Exercise: Strengthening;Functional Mobility;Pain Control Location/Body Area: Cervical Spine Manual Therapy (40754) Soft Tissue Mobilization: Manual Tissue Mobilization Soft Tissue Mobilization Details: left trap Total Minutes (All Manual Therapy): 10 Assessment: I modified some exercise to avoid low back irritation. He is doing well with extension in the neck and the b/p cuff isometrics. He will add the seated isometrics for the weekend. Plan for Next Visit: Assess and treat Total UNTIMED Code Treatment Minutes: Total TIMED Code Treatment Minutes: 30 Total Treatment Minutes: 30 Author: Annita Robert, PT 02/06/2019 16:18 documented in this encounter Plan of Treatment Date Type Specialty Care Team Description 02/11/2019 Office Visit Physical Therapy Annita Robert, PT [address] [place] [address] [phone] 07/10/2019 Office Visit Gastroenterology Gina Steiner, [employer] [address] [place] [address] [phone] Health Maintenance Due Date Last Done Comments PNEUMOCOCCAL 0-64 YRS (1 of - 02/02/1984 PPSV23) HIV SCREENING 1993 LIPID [...]
--- OUTSIDE RECORDS SUMMARY | 2019-02-10 23:06 | XMS REPORT | Summary of Care ---
:1980 Author Organization [facility] Address [address] [place] [place] [address] Care Team Providers Name Role Phone Rafael Joy MD Primary Care Provider Reason for Visit Reason Comments Neck Pain Encounter Details Date Type Department Care Team Description 01/30/2019 Office Visit [facility] - Annita Robert, TONYA Cervicalgia (Primary [place] [facility] [address] Dx) Therapy [place] [address] [employer] [facility] [phone] [address] [place] [address] Allergies Active Allergy Reactions Severity Noted Date Comments Compazine Cardiac Reaction High 10/05/2015 Bradycardia documented as of this encounter (statuses as of 01/30/2019) Medications Medication Sig Dispensed Refills Start Date End Date Status acetaminophen Take 500 mg 0 Active (TYLENOL) [...] Daily syndrome with Amount: 3 diarrhea Tabs. pantoprazole take 1 90 Tab 3 01/28/2019 Discontinued (PROTONIX) 40 MG tablet by 9 (Reorder) Oral Tab EC mouth once daily documented as of this encounter (statuses as of 01/30/2019) Active Problems Problem Noted Date Chronic hepatitis C without hepatic coma 11/29/2017 Chronic insomnia 10/05/2016 History of hepatitis C 12/16/2014 Overview: Secondary to IVDU, s/p Harvoni [address] Grace Substance abuse 04/21/2014 Overview: Heroin IVDA 2013 S/p [place] rehab stay October 2014 Alcohol and drug [place] [facility] November 2014 counseling three times weekly Clean since 10/2014 IBS (irritable bowel syndrome) 04/21/2014 Overview: chronic abdominal pain, negative endoscopies 2009 and prior, failed symptomatic medical management, complicated by prescription and IV drug abuse Tobacco use disorder 04/21/2014 Overview: 1/4 pack per day began age 13 Failed varenicline documented as of this encounter (statuses as of 01/30/2019) Social History Tobacco Use Types Packs/Day Years [...] encounter Progress Notes Annita Robert, PT - 01/30/2019 4:00 PM EDT [facility] Treatment Note Outpatient Physical [facility] [address] [place] [phone] Treatment Number: 3 Referring Physician: Rafael Joy Primary Diagnosis: ICD-9-CM ICD-10-CM 1. Cervicalgia 723.1 M54.2 Time In: 1600 Time Out: 1630 Pain at Start of Care: 2/10 Pain at End of Care: 2 Subjective Comments: He has about the same pain, no headaches. Yesterday he had right sided neck pain Which is opposite, no idea why. Interventions: Therapeutic Exercises (03592) Number of Exercises?: 5 Total Minutes (all Therapeutic Exercise): 20 Exercise #1 Exercise Name: supine anterior neck flexors Reason for Exercise: Other (see Comments)(stability) Location/Body Area: Cervical Spine Exercise #2 Exercise Name: neck extensors with b/p cuff Reason for Exercise: Strengthening Location/Body Area: Cervical Spine Exercise #3 Exercise Name: neck extension test head up to T5 off table Reason for Exercise: Strengthening Location/Body Area: Cervical Spine Details: kareem 10 sec in did 30 Manual Therapy (53954) Soft Tissue Mobilization: Manual Tissue Mobilization Soft Tissue Mobilization Details: left trap Total Minutes (All Manual Therapy): 10 Assessment: working on stabilization and strength of the neck. He did well with anterior neck flexors without firing scms. He has a b/p cuff at home and will use this for extensors. Plan for Next Visit: Assess and treat Total UNTIMED Code Treatment Minutes: Total TIMED Code Treatment Minutes: 30 Total Treatment Minutes: 30 Author: Annita Robert PT 01/30/2019 16:21 documented in this encounter Plan of Treatment Date Type Specialty Care Team Description 02/03/2019 [place] [address] [place] [address] [phone] 02/06/2019 Office [place] [address] [place] [address] [phone] 02/11/2019 Office Visit Physical Therapy Annita Robert, PT [address] [place] [address] [phone] 07/10/2019 Office Visit Gastroenterology Gina Steiner, GRISELDA [address] [place] [place] [address] [phone] Health Maintenance Due Date Last Done Comments [...]
--- OUTSIDE RECORDS SUMMARY | 2019-02-10 23:06 | XMS REPORT | Summary of Care ---
:1980 Author Organization [facility] Address [address] [place] [address] Care Team Providers Name Role Phone Rafael Joy MD Primary Care Provider Reason for Visit Reason Comments Neck Pain Encounter Details Date Type Department Care Team Description 01/08/2019 Office Visit [facility] - Annita Robert, TONYA Cervicalgia (Primary [place] [facility] [address] Dx) [place] [address] [address] [employer] [facility] [phone] [place] [address] Allergies Active Allergy Reactions Severity Noted Date Comments Compazine Cardiac Reaction High 10/05/2015 Bradycardia documented as of this encounter (statuses as of 01/08/2019) Medications Medication Sig Dispensed Refills Start Date [...] 10 MG Oral mouth EVERY Tab BEDTIME. diphenoxylate-atropine Take 1 Tab by 90 Tab 0 12/04/2018 Active (LOMOTIL) 2.5-0.025 MG mouth THREE Oral TabIndications: TIMES DAILY. Max Irritable bowel syndrome Daily Amount: 3 with diarrhea Tabs. diclofenac (VOLTAREN) 50 Take 50 mg by 0 Active MG Oral Tab EC mouth TWICE DAILY. documented as of this encounter (statuses as of 01/08/2019) Active Problems Problem Noted Date Chronic hepatitis C without hepatic coma 11/29/2017 Chronic insomnia 10/05/2016 History of hepatitis C 12/16/2014 Overview: Secondary to IVDU, s/p Harvoni [address] Grace Substance abuse 04/21/2014 Overview: Heroin IVDA 2013 S/p [place] rehab stay October 2014 Alcohol and drug [place] [facility] November 2014 counseling three times weekly Clean since 10/2014 IBS (irritable bowel syndrome) 04/21/2014 Overview: chronic abdominal pain, negative endoscopies 2009 and prior, failed symptomatic medical management, complicated by prescription and IV drug abuse Tobacco use disorder 04/21/2014 Overview: 1/4 pack per day began age 13 Failed varenicline documented as of this encounter (statuses as of 01/08/2019) Social History Tobacco Use Types Packs/Day Years [...] encounter Progress Notes Annita Robert, PT - 01/08/2019 3:30 PM EDT [facility] Initial Evaluation Outpatient Physical Therapy Services [facility] [address] [place] [address] Patient: Tim Felton : 1980 Date of Service: 01/08/2019 Referring Physician: Rafael Joy Primary Diagnosis: ICD-9-CM ICD-10-CM 1. Cervicalgia 723.1 M54.2 Time In: 1530 Time Out: 1630 Subjective: He is a 38-y.o.-year-old male who presents for outpatient physical therapy with a chiefcomplaint of neck pain present for 4 years. He describes weekly headaches that last 2-3 days and areon bilateral temples 7/10 intensity.He feels "cold feeling creeping around neck into cheeks and under his eyes". He had once instance of stretching his neck himself to the left and lost vision for 30sec. Prior Functional Status: independent Current Functional Status: independent Abuse/Neglect Screening Are you being threatened or hurt by anyone? : No FOTO Data FOTO Intake Completed: Yes Intake FS Score: 36 Predicted FS Score: 51 Objective: Past Medical History: Diagnosis Date GERD (gastroesophageal reflux disease) High cholesterol Past Surgical History: Procedure Laterality Date COLONOSCOPY N/A 01/17/2016 Procedure: COLONOSCOPY with biopsies; Surgeon: Tim Olsen MD FAC; Location: [facility] MAIN OR COLONOSCOPY DIAGNOSTIC approx. 2 years ago EGD (KENNEY / NON KENNEY) 3-4 years ago Current Outpatient Medications: acetaminophen (TYLENOL) 500 MG Oral Tab, Take 500 mg by mouth EVERY SIX HOURS NEEDED for Pain., Disp: , Rfl: cyclobenzaprine (FLEXERIL) 10 MG Oral Tab, Take 1 Tab by mouth EVERY BEDTIME., Disp: 30 Tab,Rfl: 5 diclofenac (VOLTAREN) 50 MG Oral Tab EC, Take 50 mg by mouth TWICE DAILY., Disp: , Rfl: diphenoxylate-atropine (LOMOTIL) 2.5-0.025 MG Oral Tab, Take 1 Tab by mouth THREE TIMES DAILY. Max Daily Amount: 3 Tabs., Disp: 90 Tab, Rfl: 0 pantoprazole (PROTONIX) 40 MG Oral Tab EC, take 1 tablet by mouth once daily, Disp: 90 Tab, Rfl: 3 Quetiapine Fumarate (SEROQUEL) 50 MG Oral Tab, take 1 to 2 tablets by mouth once daily at bedtime, Disp: 60 Tab, Rfl: 4 Allergies Allergen Reactions Compazine Cardiac Reaction Bradycardia Objective: He has full cervical AROM he did have some lutheran pain with the end range of left rotation No tingling into arms but into face bilaterally H/A weekly and 7/10 pain no light or sound sensitivity Hx of L3 compression fracture 6 yrs ago No jaw issues He has significant IBS He sleeps 3 consecutive hrs max. Right handed Plan of Care Plan of Care Start Date: 01/08/19 Plan of Care Expiration Date: 04/10/19 Prior Function Comment: independent Current Function Comment: independent Rehabilitative Prognosis: Good Planned Intervention(s): PT Mari Moderate Complexity (43740) Frequency of Treatments: 1-2 times a week Duration of Treatments: 1-2 weeks;1 month History Components: Moderate (1-2 personal factors and/or comorbidities) Examination of Body Systems/Components: Moderate (Addressing a total of 3 or more elements) Clinical Presentation: Evolving - changing/inconsistent clinical characteristics (Moderate) Clinical Decision Making (complexity): Moderate Treatment Number: 1 Total Time of Evaluation: 45 Outcome Tools Used: foto Assessment: 38 year old male with hx of headache, facial paresthesia, and left neck pain. His AROM is normal but he has hypermobility. He is very sensitive to skin products cannot tolerate biofreeze or any muscle rub. Will focus on reducing tension in the left trapezius/ scalene to reduce pain. He may not be a good candidate for mobilization of the neck based on his symptoms and Hypermobile joints. Was Physical Therapy treatment performed at this visit? Yes: Interventions: FOTO Data FOTO Intake Completed: Yes Intake FS Score: 36 Predicted FS Score: 51 Manual Therapy (43261) Soft Tissue Mobilization: Manual Tissue Mobilization Soft Tissue Mobilization Details: left trap Joint Mobilization: P/A grade II Joint Mobilization Details: sore C1 on left C2 cent C3-4 cent Total Minutes (All Manual Therapy): 15 Plan for Next Visit: Stretching/foam roll Evaluation Complexity Assessment: History Components: Moderate (1-2 personal factors and/or comorbidities) Examination of Body Systems/Components: Moderate (Addressing a total of 3 or more elements) Clinical Presentation: Evolving - changing/inconsistent clinical characteristics (Moderate) Clinical Decision Making (complexity): Moderate Treatment Number: 1 Total Time of Evaluation: 45 Total Number of Timed Code Treatment Minutes: 15 Author: Annita Robert, TONYA 01/08/2019 16:03 documented in this encounter Plan of Treatment Date Type Specialty Care Team Description 01/09/2019 Office Visit Gastroenterology Gina Steiner, SPORTS MARKETING COORDINATOR [address] [place] [address] [phone] 01/21/2019 Office Visit Gastroenterology Gina Steiner, SPORTS MARKETING COORDINATOR [address] [place] [address] [phone] 01/27/2019 Office Visit Physical Therapy Annita Robert, PT [address] [place] [address] [phone] 01/30/2019 Office Visit Physical Therapy Annita Robert, PT [address] [place] [address] [phone] 02/03/2019 Office [place] [address] [place] [address] [phone] 02/06/2019 Office [place] [address] [place] [address] [phone] 02/11/2019 Office Visit Physical Therapy Annita Robert, PT [address] [place] [address] [phone] Health Maintenance Due Date Last Done Comments PNEUMOCOCCAL 0-64 YRS (1 - 02/02/1984 PPSV23) HIV SCREENING 1993 LIPID [...] MEDICAID [place] xxxxxxxx 2016-Present [place]ICA[place] (Work) documented as of this encounter
== END 2019-02-11 00:25 | disposition left against medical advice (07) ==
LOC: ED 22:54
DX: R10.9 Unspecified abdominal pain (principal); Z53.21 Procedure and treatment not carried out due to patient leaving prior to being seen by health care provider
CPT/HCPCS: 99281

== ENCOUNTER 2019-02-11 14:56 | Emergency (ER) | payer MEDICAID ==
[2019-02-11 15:12] VITALS: BP 126/100
--- NOTE | 2019-02-11 15:43 | UC ---
Abdominal Pain Male HPI - HPI Summary HPI Summary: Patient is a 39yo male presenting with lower abdominal pain x1 week. He states he has IBS but this is a different pain than what he experiences with that. Describes the pain as pressure. Notes pain is worse with sitting up and better with lying down. Notes diarrhea but states that is normal for him. Eating does not exacerbate or relieve pain. Having a BM does not exacerbate or alleviate pain. Patient notes frequency in urination over the past month or two. Denies blood in urine or stool. Denies burning with urination. Denies n/v. Denies fever , chills, and headache. Denies decreased appetite or fluid intake. - History of Current Complaint Chief Complaint: UCAbdominalPain Stated Complaint: ABD PAIN Hx Obtained From: Patient Onset/Duration: Gradual Onset, Lasting Days Severity Initially: Moderate Severity Currently: Moderate Pain Intensity: 5 Pain Scale Used: 0-10 Numeric Location: Diffuse, Suprapubic Radiates: No Associated Signs And Symptoms: Negative: Penile Discharge - Allergies/Home Medications Allergies/Adverse Reactions: Allergies Allergy/AdvReac Type Severity Reaction Status Date / Time adhesive Allergy See Comment Verified 02/11/19 15:12 prochlorperazine Allergy See Comment Verified 02/11/19 15:12 Home Medications: Home Medications Diclofenac Sodium 50 mg PO TID 02/11/19 [History Confirmed 02/11/19] Diphenoxylat/Atrop 2.5-0.025M* [Lomotil TAB*] 1 tab PO TID 02/11/19 [History Confirmed 02/11/19] PMH/Surg Hx/FS Hx/Imm Hx GI/ History: Other - IBS - Surgical History Surgical History: Yes Surgery Procedure, Year, and Place: Left Knee, exploratory and reconstructive. right wrist - exploratory and wafer procedure. tonsillectomy - Family History Known Family History: Positive: None, Cardiac Disease - Social History Alcohol Use: None Substance Use Type: None Substance Use Comment - Amount & Last Used: recovered addict HEROINE Smoking Status (MU): Heavy Every Day Tobacco Smoker Type: Cigarettes Amount Used/How Often: 1 PPD Length of Time of Smoking/Using Tobacco: 20+ YEARS, 1/2 PPD - Immunization History Most Recent Tetanus Shot: within 10 years Review of Systems All Other Systems Reviewed And Are Negative: Yes Constitutional: Positive: Negative. Negative: Fever, Chills, Fatigue Skin: Positive: Negative ENT: Positive: Negative. Negative: Sore Throat, Ear Ache, Sinus Congestion Respiratory: Positive: Negative. Negative: Shortness Of Breath, Cough Cardiovascular: Positive: Negative. Negative: Palpitations, Chest Pain Gastrointestinal: Positive: Abdominal Pain, Diarrhea. Negative: Vomiting, Nausea Genitourinary: Positive: Frequency. Negative: Dysuria, Hematuria, Vaginal/ Penile Burning, Vaginal/Penile Itching, Vaginal/Penile Discharge, Vaginal/ Penile Pain, Vaginal/Penile Tenderness, Abnormal Bleeding Musculoskeletal: Positive: Negative Neurological: Negative: Headache Physical Exam Triage Information Reviewed: Yes Appearance: Well-Appearing, No Pain Distress, Well-Nourished Vital Signs: Initial Vital Signs Temp 99.7 F 02/11/19 15:03 Pulse 102 02/11/19 15:03 Resp 16 02/11/19 15:03 BP 126/100 02/11/19 15:03 Pulse Ox 98 02/11/19 15:03 Laboratory Tests 02/11/19 15:39 POC Urine Color Yellow POC Urine Clarity Clear POC Urine pH 5.5 POC Ur Specif [place] <= 1.005 L POC Urine Protein Negative POC Ur Glucose (UA) Negative POC Urine Ketones Negative POC Urine Blood Negative POC Urine Nitrite Negative POC Urine Bilirubin Negative POC Urine Urobilinogen 0.2 POC U Leukocyte Esteras Negative Vital Signs Reviewed: Yes Eyes: Positive: Conjunctiva Clear ENT: Positive: Hearing grossly normal Neck: Positive: Supple Respiratory Exam: Normal Respiratory: Positive: Lungs clear, Normal breath sounds, No respiratory distress, No accessory muscle use Cardiovascular Exam: Normal Cardiovascular: Positive: Pulses Normal, Tachycardia Abdomen Description: Positive: Soft, Other: - psoas sign negative. rovsings sign negative.. Negative: Nontender - mild tenderness to palpation of LUQ. no tenderness to palpation of suprapubic area, CVA Tenderness (R), CVA Tenderness ( L), Distended, Guarding, Hepatomegaly Bowel Sounds: Positive: Present, Hypoactive Neurological: Positive: Alert Psychological: Positive: Age Appropriate Behavior Skin Exam: Normal Abd Pain Male Course/Dx - Course Course Of Treatment: Dr. Banuelos also examined the patient. Discussed with patient lack of concern for appendicitis or anything surgical based on VS and PE findings. Discussed with patient that he may continue his anti diarrheal as directed. Patient instructed to drink plenty of fluids. 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 Directed to go to the emergency department if he develops fever, excessive vomiting, blood in the urine or stool, or is unable to keep fluids down. Patient voiced understanding and agreed to the plan. - Differential Dx/Clinical Impression Provider Diagnosis: Abdominal pain, Urinary frequency Discharge ED - Sign-Out/Discharge Documenting (check all that apply): Patient Departure All imaging exams completed and their final reports reviewed: No Studies - Discharge Plan Condition: Stable Disposition: HOME Patient Education Materials: Abdominal Pain (ED) Referrals: Rafael Joy MD [Primary Care Provider] - As Soon As Possible Additional Instructions: You may continue to with your anti diarrheal medication as directed. Drink plenty of fluids to avoid dehydration. Eat a bland diet, such as bread, bananas, and rice while symptoms are present. Follow up with your gasoline locomotive crane operator within the next week for further evaluation. Go to the emergency room if your symptoms do not resolve or you develop fever, excessive vomiting, have blood in your urine or stool, or are unable to keep fluids down. - Billing Disposition and Condition Condition: STABLE Disposition: Home - Attestation Statements Provider Attestation: Per institutional requirements, I have reviewed the chart, however, I was not consulted specifically or made aware of this patient by the midlevel provider. I did not personally evaluate, interact with , or disposition this patient.
== END 2019-02-11 16:12 | disposition home or self-care (01) ==
LOC: UCEAST 14:56
DX: R10.30 Lower abdominal pain, unspecified (principal); R35.0 Frequency of micturition; K58.9 Irritable bowel syndrome, unspecified; F17.210 Nicotine dependence, cigarettes, uncomplicated
CPT/HCPCS: 81003; 99211; G0463

== ENCOUNTER 2019-02-15 15:15 | Emergency (ER) | payer MEDICAID ==
[2019-02-15] MEDS ORDERED: NS 0.9% 1000 ML** 1,000 ML IV ONE ×2 (15:35→17:55)
--- NOTE | 2019-02-15 15:36 | ED ---
GI/ HPI - HPI Summary HPI Summary: This patient is a 39 year old M presenting to ED with a chief complaint of bright red rectal bleed (x1) at 1519 today. Patient has been having intermittent lower abdominal pain for the past week. He came to the ER when the pain started, but reports the line was too long so he went home. He saw CC the following day and was told to come here if patient had rectal bleeding, which he had today. He has had normal bowel movements until today. Patient denies a history of hemorrhoids. He saw Dr. Grace at [place] yesterday, who put him in Lomotil. In the ED room, the patient reports the pain is not as bad as it is been, but he still feels it in his lower abdomen. Patient thinks he has an enlarged prostate, so he reports having more frequent urination since six months ago. The patient rates the pain 3/10 in severity. Symptoms aggravated by sitting up straight and downward force per patient which causes the pain to become sharp. Symptoms alleviated by nothing. Patient denies fever. - History of Current Complaint Chief Complaint: EDGIBleed Time Seen by Provider: 02/15/19 15:25 Stated Complaint: BLOOD IN STOOL PER PT Hx Obtained From: Patient Onset/Duration: Started Hours Ago - Today Timing: Intermittent - Abdominal pain, Lasting Weeks - 1 week Severity: Mild Current Severity: Mild Pain Intensity: 3 Location of Pain: Diffuse - Lower Pain Characteristics: Sharp - When sitting up straight or applying downward pressure Associated Signs and Symptoms: Positive: Bright Red Blood w/Stool - x1, Abdominal Pain. Negative: Fever Aggravating Factor(s): Sitting - Sitting up straight, applying "downward force" per patient Alleviating Factor(s): Nothing - Allergy/Home Medications Allergies/Adverse Reactions: Allergies Allergy/AdvReac Type Severity Reaction Status Date / Time adhesive Allergy See Comment Verified 02/15/19 15:20 prochlorperazine Allergy See Comment Verified 02/15/19 15:20 Home Medications: Home Medications Acetaminophen [Tylenol Extra Strength] 1,000 - 1,500 mg PO Q8H PRN 02/15/19 [ History Confirmed 02/15/19] Cyclobenzaprine TAB* [Flexeril 10 MG TAB*] 10 mg PO BEDTIME 02/15/19 [History Confirmed 02/15/19] PMH/Surg Hx/FS Hx/Imm Hx Endocrine/Hematology History: Denies: Hx Diabetes, Hx Thyroid Disease Cardiovascular History: Denies: Hx Hypertension Respiratory History: Denies: Hx Asthma, Hx Chronic Obstructive Pulmonary Disease (COPD) GI History: Reports: Other GI Disorders - Negative: hemorrhoids Denies: Hx Ulcer Psychiatric History: Denies: Hx Eating Disorder - Surgical History Surgery Procedure, Year, and Place: Left Knee, exploratory and reconstructive. right wrist - exploratory and wafer procedure. 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 Skin: The skin is warm and dry, and skin color reflects adequate perfusion. HEENT: The head is normocephalic and atraumatic. The pupils are equal and reactive. The conjunctivae are clear and without drainage. Nares are patent and without drainage. Mouth reveals moist mucous membranes, and the throat is without erythema and exudate. The external ears are intact. The ear canals are patent and without drainage. The tympanic membranes are intact. Neck: The neck is supple with full range of motion and non-tender. There are no carotid bruits. There is no neck vein distension. Respiratory: Chest is non-tender. Lungs are clear to auscultation and breath sounds are symmetrical and equal. Cardiovascular: Heart is regular rate and rhythm. There is no murmur or rub auscultated. There is no peripheral edema and pulses are symmetrical and equal. Abdomen: The abdomen is soft and non-tender. There are normal bowel sounds heard in all four quadrants and there is no organomegaly palpated. Musculoskeletal: There is no back tenderness noted. Extremities are non-tender with full range of motion. There is good capillary refill. There is no peripheral edema or calf tenderness elicited. Neurological: Patient is alert and oriented to person, place and time. The patient has symmetrical motor strength in all four extremities. Cranial nerves are grossly intact. Deep tendon reflexes are symmetrical and equal in all four extremities. Psychiatric: The patient has an appropriate affect and does not exhibit any anxiety or depression. Triage Information Reviewed: Yes Vital Signs On Initial Exam: Initial Vitals Temp Pulse Resp BP Pulse Ox 98.1 F 119 16 136/107 96 02/15/19 15:16 02/15/19 15:16 02/15/19 15:16 02/15/19 15:16 02/15/19 15:16 Vital Signs Reviewed: Yes Diagnostics - Vital Signs Vital Signs Temp Pulse Resp BP Pulse Ox 02/15/19 15:16 98.1 F 119 16 136/107 96 - Laboratory Result Diagrams: 02/15/19 15:46 02/15/19 15:46 Lab Statement: Any lab studies that have been ordered have been reviewed, and results considered in the medical decision making process. - CT A/P CT Interpretation Completed By: Radiologist Summary of CT Findings: 1. Artifact from under distention versus mild wall thickening suggesting colitis in the transverse, left, and sigmoid colon. No bowel obstruction. Correlate with clinical history and physical exam. 2. Other non-emergent findings as above. Dr. Lopez has reviewed this radiology report. Re-Evaluation - Re-Evaluation First Eval Re-Evaluation Time: 16:40 Comment: Discussed results with patient. Patient will be discharged home with dx of IBS and rectal bleed. Patient understands and agrees with this plan. GIGU Course/Dx - Course Course Of Treatment: Mr. Felton presented complaining of lower abdominal pain for about a week. Today he passed bright red blood with stool one time. He is seen by Dr. Grace of gastroenterology at [place] for irritable bowel syndrome and treated with Lomotil. He has had a couple of episodes of hematochezia over the last few years. He was nontoxic in appearance with stable vitals. His labs were unremarkable and CT scan showed a likely colitis. I think ischemic colitis is unlikely. I'm not aware of inflammatory bowel disease aside from the irritable bowel syndrome that he has therefore I am going to treat this as an infectious colitis with antibiotics and follow-up with Dr. Grace. I offered pain medications but he is recovering from opioid use and refuses. - Diagnoses Provider Diagnoses: Irritable bowel syndrome, Rectal bleed, Colitis Discharge ED - Sign-Out/Discharge Documenting (check all that apply): Patient Departure Patient Received Moderate/Deep Sedation with Procedure: No - Discharge Plan Condition: Stable Disposition: HOME Prescriptions: Ciprofloxacin TAB* [Cipro Tab*] 500 mg PO BID #20 tab metroNIDAZOLE [Flagyl 500 MG TAB] 500 mg PO TID #30 tab Patient Education Materials: Irritable Bowel Syndrome (ED), Rectal Bleeding (ED ), Colitis (ED) Referrals: Rafael Joy MD [Primary Care Provider] - 3 Days Additional Instructions: FOLLOW-UP WITH YOUR PRIMARY CARE PROVIDER IN 2-[address] GRACE FOR YOUR SYMPTOMS. PLEASE RETURN TO THE ER FOR WORSENING OR CHANGING SYMPTOMS. TAKE TYLENOL FOR YOUR PAIN. - Billing Disposition and Condition Condition: STABLE Disposition: Home - Attestation Statements Document Initiated by Tello: Yes Documenting Scribe: Rafael De La Garza Provider For Whom Tello is Documenting (Include Credential): Иван Lopez MD Scribe Attestation: Rafael Salgado, scribed for Иван Lopez MD on 02/16/19 at 0733. Scribe Documentation Reviewed: Yes Provider Attestation: The documentation as recorded by the Rafael moses accurately reflects the service I personally performed and the decisions made by me, Иван Lopez MD Status of Scribe Document: Viewed
--- OUTSIDE RECORDS SUMMARY | 2019-02-15 15:36 | XMS REPORT | Summary of Care ---
:1980 Author Organization [facility] Address [address] [place] [address] Care Team Providers Name Role Phone Rafael Joy Primary Care Provider Reason for Visit Reason Comments Neck Pain Encounter Details Date Type Department Care Team Description 02/13/2019 Office Visit [facility] - Annita Robert, TONYA Cervicalgia (Primary [place] [facility] [address] Dx) [place] [address] [address] [employer] [facility] [phone] [place] [address] Allergies Active Allergy Reactions Severity Noted Date Comments Compazine Cardiac Reaction High 10/05/2015 Bradycardia documented as of this encounter (statuses as of 02/13/2019) Medications Medication Sig Dispensed Refills Start Date [...] as of this encounter (statuses as of 02/13/2019) Active Problems Problem Noted Date Chronic hepatitis C without hepatic coma 11/29/2017 Chronic insomnia 10/05/2016 History of hepatitis C 12/16/2014 Overview: Secondary to IVDU, s/p Harvoni [address] Grace Substance abuse 04/21/2014 Overview: Heroin IVDA 2013 S/p [place] rehab stay October 2014 Alcohol and drug [place] [facility] November 2014 counseling three times weekly Clean since 10/2014 IBS (irritable bowel syndrome) 04/21/2014 Overview: chronic abdominal pain, negative endoscopies 2009 and prior, failed symptomatic medical management, complicated by prescription and IV drug abuse Tobacco use disorder 04/21/2014 Overview: 1/4 pack per day began age 13 Failed varenicline documented as of this encounter (statuses as of 02/13/2019) Social History Tobacco Use Types Packs/Day Years [...] encounter Progress Notes Annita Robert, PT - 02/13/2019 3:30 PM EDT [facility] Treatment Note [facility] [place] [address] [place] [phone] Treatment Number: 5 Referring Physician: Rafael Joy Primary Diagnosis: ICD-9-CM ICD-10-CM 1. Cervicalgia 723.1 M54.2 Time In: 1530 Time Out: 1600 Pain at Start of Care: 4/10 Pain at End of Care: 2/10 Subjective Comments: He's had a bad time with low back pain and as a result the neck is tight and hurting. Interventions: Manual Therapy (72272) Soft Tissue Mobilization: Manual Tissue Mobilization Soft Tissue Mobilization Details: left trap Joint Mobilization: grade III traction Joint Mobilization Details: pain reduced and right rotation improved. Total Minutes (All Manual Therapy): 30 Assessment: Pre treatment he was limited with right cervical rotation post full rotation. He had increased compression in the neck from tight muscles he tolerated the traction well the left side did not release as quick as the right but after 20 minutes did let up and he had full motion. Plan for Next Visit: Going out a week to see how the neck does. Total UNTIMED Code Treatment Minutes: Total TIMED Code Treatment Minutes: 30 Total Treatment Minutes: 30 Author: Annita Robert, PT 02/13/2019 15:53 documented in this encounter Plan of Treatment Date Type Specialty Care Team Description 02/25/2019 Office Visit Physical Therapy Annita Robert, PT [address] [place] [address] [phone] 07/10/2019 Office Visit Gastroenterology Gina Steiner, MARKETING SUPPORT MANAGER [address] [facility] [place] [address] [phone] Health Maintenance Due Date Last Done Comments [...]
[2019-02-15 16:02] LABS: ABS Eosinophils 0.1 10^3/ul (0-0.6); ABS Lymphocytes 1.3 10^3/ul (1.0-4.8); ABS Monocytes 0.5 10^3/ul (0-0.8); ABS Neutrophils 6.6 10^3/ul (1.5-7.7); Eosinophil % 0.9 %; Hematocrit 49 % (42-52); Lymphocyte % 15.8 %; Mean Corpuscular HGB Conc 35 g/dL (31-36); Mean Corpuscular Hemoglobin 30 pg (27-31); Mean Corpuscular Volume 86 fL (80-94); Mean Platelet Volume 7.9 fL (7.4-10.4); Platelet Count 258 10^3/uL (150-450); Red Blood Count 5.65 10^6 /uL (4.18-5.48); Red Cell Distribution Width 14 % (10-15); White Blood Count 8.5 10^3/uL (3.5-10.8)
[2019-02-15 16:19] LABS: Albumin 4.4 g/dL (3.2-5.2); Albumin/Globulin Ratio 1.8 (1-3); BUN/Creatinine Ratio 18.2 (8-20); C Reactive Protein 1.26 mg/L (<8.01); Calcium 9.2 mg/dL (8.6-10.3); EGFR African American 89.3 (>60); EGFR Non-African American 73.8 (>60); Globulin 2.5 g/dL (2-4); Potassium 3.8 mmol/L (3.5-5.0); Total Bilirubin 0.6 mg/dL (0.2-1.0); Total Protein 6.9 g/dL (6.4-8.9)
[2019-02-15 19:37] VITALS: BP 130/93
== END 2019-02-15 19:34 | disposition home or self-care (01) ==
LOC: ED 15:15
DX: K58.9 Irritable bowel syndrome, unspecified (principal); K62.5 Hemorrhage of anus and rectum; R10.9 Unspecified abdominal pain; Z79.899 Other long term (current) drug therapy; F17.210 Nicotine dependence, cigarettes, uncomplicated
CPT/HCPCS: 36415; 74176; 80053; 83605; 83690; 85025; 86140; 96360; 96361; 99284

== ENCOUNTER 2019-03-08 21:54 | Emergency (ER) | payer MEDICAID ==
--- OUTSIDE RECORDS SUMMARY | 2019-03-08 22:06 | XMS REPORT | Summary of Care ---
:1980 Author Organization [facility] Address [address] [place] [address] Care Team Providers Name Role Phone Rafael Joy Primary Care Provider Reason for Visit Reason Comments Neck Pain Encounter Details Date Type Department Care Team Description 02/25/2019 Office Visit [facility] - Annita Robert, TONYA Cervicalgia (Primary [place] [facility] [address] Dx) [place] [address] [address] [employer] [facility] [phone] [address] [place] [address] Allergies Active Allergy Reactions Severity Noted Date Comments Compazine Cardiac Reaction High 10/05/2015 Bradycardia documented as of this encounter (statuses as of 02/25/2019) Medications Medication Sig Dispensed Refills Start Date [...] as of this encounter (statuses as of 02/25/2019) Active Problems Problem Noted Date Chronic hepatitis C without hepatic coma 11/29/2017 Chronic insomnia 10/05/2016 History of hepatitis C 12/16/2014 Overview: Secondary to IVDU, s/p Harvoni [address] Grace Substance abuse 04/21/2014 Overview: Heroin IVDA 2013 S/p [place] rehab stay October 2014 Alcohol and drug [facility] November 2014 counseling three times weekly Clean since 10/2014 IBS (irritable bowel syndrome) 04/21/2014 Overview: chronic abdominal pain, negative endoscopies 2009 and prior, failed symptomatic medical management, complicated by prescription and IV drug abuse Tobacco use disorder 04/21/2014 Overview: 1/4 pack per day began age 13 Failed varenicline documented as of this encounter (statuses as of 02/25/2019) Social History Tobacco Use Types Packs/Day Years [...] encounter Progress Notes Annita Robert, PT - 02/25/2019 4:30 PM EDT [facility] Treatment Note [facility] [address] [facility] [facility] [facility] [id number] Treatment Number: 6 Referring Physician: Rafael Joy Primary Diagnosis: ICD-9-CM ICD-10-CM 1. Cervicalgia 723.1 M54.2 Time In: 1630 Time Out: 1700 Pain at Start of Care: 4 Pain at End of Care: 06/30 Subjective Comments: He had to go to the ER because of abdominal pain. Turns out he has colitis. He is on some antibiotics and because he is sitting bent over to reduce pain the neck is more sore, heis having issue sleeping now. Interventions: Manual Therapy (52614) Soft Tissue Mobilization: Manual Tissue Mobilization Soft Tissue Mobilization Details: left trap Joint Mobilization: grade III traction Joint Mobilization Details: pain reduced Total Minutes (All Manual Therapy): 30 Assessment: His cervical rotation is actually good today. Discussed trouble shooting sleeping position options. He tolerated traction and had tension and pain release. Plan for Next Visit: Assess and treat Total UNTIMED Code Treatment Minutes: Total TIMED Code Treatment Minutes: 30 Total Treatment Minutes: 30 Author: Annita Robert, PT 02/25/2019 16:49 documented in this encounter Plan of Treatment Date Type Specialty Care Team Description 02/27/2019 Office Visit Gastroenterology Gina Steiner, GRISELDA [address] [place] [address] [phone] 03/05/2019 Office Visit Physical Therapy Annita Robert, PT [address] [place] [address] [phone] 03/10/2019 Office Visit Physical Therapy Annita Robert, PT [address] [place] [address] [phone] 03/12/2019 Office Visit Physical Therapy Annita Robert, PT [address] [place] [address] [phone] 03/17/2019 Office Visit Physical Therapy Annita Robert, PT [address] [place] [address] 03/19/2019 Office Visit Physical Therapy Annita Robert, PT [address] [place] [address] [phone] 07/10/2019 Office Visit Gastroenterology Gina Steiner NP [address] [place] [address] [phone] Health Maintenance Due Date Last Done Comments [...] Felton Personal/Family [address] (Home) [place], [facility] (Work) documented as of this encounter
--- OUTSIDE RECORDS SUMMARY | 2019-03-08 22:06 | XMS REPORT | Summary of Care ---
:1980 Author Organization [facility] Address [address] [place] [address] Care Team Providers Name Role Phone Rafael Joy Primary Care Provider Reason for Visit Reason Comments Neck Pain Encounter Details Date Type Department Care Team Description 03/05/2019 Office Visit [facility] - Annita Robert, TONYA Cervicalgia (Primary [place] [facility] [address] Dx) [place] [address] [address] [employer] [facility] [phone] [place] [address] Allergies Active Allergy Reactions Severity Noted Date Comments Tape: Silk Or Adhesive Rash 02/27/2019 Rash & burning Compazine Cardiac Reaction High 10/05/2015 Bradycardia documented as of this encounter (statuses as of 03/06/2019) Medications Medication Sig Dispensed Refills Start Date [...] as of this encounter (statuses as of 03/06/2019) Active Problems Problem Noted Date Chronic hepatitis C without hepatic coma 11/29/2017 Chronic insomnia 10/05/2016 History of hepatitis C 12/16/2014 Overview: Secondary to IVDU, s/p Harvoni [address] Grace Substance abuse 04/21/2014 Overview: Heroin IVDA 2013 S/p [place] rehab stay October [address] [facility] November 2014 counseling three times weekly Clean since 10/2014 IBS (irritable bowel syndrome) 04/21/2014 Overview: chronic abdominal pain, negative endoscopies 2009 and prior, failed symptomatic medical management, complicated by prescription and IV drug abuse Tobacco use disorder 04/21/2014 Overview: 1/4 pack per day began age 13 Failed varenicline documented as of this encounter (statuses as of 03/06/2019) Social History Tobacco Use Types Packs/Day Years [...] encounter Progress Notes Annita Robert, PT - 03/05/2019 5:00 PM EDT [facility] Treatment Note Outpatient Physical [facility] [address] [place] [id number] Treatment Number: 7 Referring Physician: Rafael Joy Primary Diagnosis: ICD-9-CM ICD-10-CM 1. Cervicalgia 723.1 M54.2 Time In: 1700 Time Out: 1730 Pain at Start of Care: 08/28 Pain at End of Care: 07/28 Subjective Comments: He has finished the anitbiotics and is feeling a little better. He is still having the headaches but the neck is moving better. Interventions: Manual Therapy (31897) Soft Tissue Mobilization: Manual Tissue Mobilization Soft Tissue Mobilization Details: left trap Joint Mobilization: grade III traction Joint Mobilization Details: pain reduced Total Minutes (All Manual Therapy): 30 Assessment: We are making gains with his AROM and reducing the muscle tension in the neck. Will continue to address the neck tension. He also got new glasses which may help with the headache. Plan for Next Visit: Assess and treat Total UNTIMED Code Treatment Minutes: Total TIMED Code Treatment Minutes: 30 Total Treatment Minutes: 30 Author: Annita Robert, TONYA 03/06/2019 07:31 documented in this encounter Plan of Treatment Date Type Specialty Care Team Description 03/10/2019 Office Visit Physical Therapy Annita Robert, PT [address] [place] [address] [phone] 03/12/2019 Office [place] [address] [place] [address] [phone] 03/17/2019 Office Visit Physical Therapy Annita Robert, PT [address] [place] [address] [phone] 03/19/2019 Office Visit Physical Therapy Annita Robert, PT [address] [place] [address] [phone] 07/10/2019 Office Visit Gastroenterology Gina Steiner, SHEET HEATER [address] [address] [phone] Health Maintenance Due Date Last Done Comments [...]
--- OUTSIDE RECORDS SUMMARY | 2019-03-08 22:06 | XMS REPORT | Summary of Care ---
:1980 Author Organization [facility] Address 1 [facility] [address] [address] Care Team Providers Name Role Phone Rafael Joy Primary Care Provider Reason for Visit Reason Comments ER F/U Follow-up to recent Tx at [facility] ER for lower abdominal pain, cramping & BRBPR; diagnosed with colitis. Encounter Details Date Type Department Care Team Description 02/27/2019 Office Visit Jeff Steiner, Irritable bowel syndrome with diarrhea (Primary Dx); Gastroenterology/Hepa Gina Frausto NP RLQ abdominal pain tology 1 [facility] [address] [facility] [address] [address] [place] [address] [phone] Allergies Active Allergy Reactions Severity Noted Date Comments Tape: Silk Or Adhesive Rash 02/27/2019 Rash & burning Compazine Cardiac Reaction High 10/05/2015 Bradycardia documented as of this encounter (statuses as of 02/27/2019) Medications Medication Sig Dispensed Refills Start Date [...] as of this encounter (statuses as of 02/27/2019) Active Problems Problem Noted Date Chronic hepatitis C without hepatic coma 11/29/2017 Chronic insomnia 10/05/2016 History of hepatitis C 12/16/2014 Overview: Secondary to IVDU, s/p [facility] [address] Grace Substance abuse 04/21/2014 Overview: [facility] [address] [facility] November 2014 counseling three times weekly Clean since 10/2014 IBS (irritable bowel syndrome) 04/21/2014 Overview: chronic abdominal pain, negative endoscopies 2009 and prior, failed symptomatic medical management, complicated by prescription and IV drug abuse Tobacco use disorder 04/21/2014 Overview: 1/4 pack per day began age 13 Failed varenicline documented as of this encounter (statuses as of 02/27/2019) Social History Tobacco Use Types Packs/Day Years [...] Sign Reading Time Taken Comments Blood Pressure 118/80 02/27/2019 9:22 AM EDT Pulse 66 02/27/2019 9:22 AM EDT Temperature 35.6 02/27/2019 9:22 AM EDT C (96 F) Respiratory Rate - - Oxygen Saturation - - Inhaled Oxygen Concentration - - Weight 77.1 kg (170 lb) 02/27/2019 9:22 AM EDT Height 180.3 cm (5' 11") 02/27/2019 9:22 AM EDT Body Mass Index 23.71 02/27/2019 9:22 AM EDT documented in this encounter Patient Instructions Patient InstructionsGina Steiner NP - 02/27/2019 9:40 AM EDTRestrenee either the Lomotil as discussed If no improvement with the above would suggest a repeat colonoscopy Follow up based on the above Thank you for choosing the [facility] for your needs today! -Gina Steiner N.P. , Please call if you need to cancel or change your appt. time. Thank you for choosing [facility] for your health care needs, and for consulting with [facility] today. You may receive a survey following [...] only take a few minutes to complete. Patient Education Irritable Bowel Syndrome Discharge Instructions About this topic Irritable bowel syndrome, or IBS, is a common long-term health problem of your belly. It does not cause swelling and does not lead to a more serious problem. The cause of IBS is not clear. There is no cure for IBS. Care focuses on how to control the signs. Signs may be mild to very bad. They can last for weeks or months. The main signs are: Belly pain Belly fullness Gassy feeling Bloating Upset stomach Loose or hard stools Loss of appetite What care is needed at home? Ask your doctor what you need to do when you go home. Make sure you ask questions if you do not understand what the doctor says. This way you will know what you need to do. Ask your doctor and learn how to cope with stress. This may include: Relaxation Doing an activity to relieve stress Counseling Joining a support group What follow-up care is needed? Your doctor may ask you to make visits to the office to check on your progress. Be sure to keep these visits. What drugs may be needed? The doctor may order drugs to: Help with pain Control belly muscle spasms Treat hard or loose stools and signs Fight an infection Be sure to take all drugs as ordered by your doctor. Will physical activity be limited? Physical activity may not be limited. You may be limited by your signs. They may keep you from goingto school or work and going to social events. Regular workouts can help improve your bowel function and other signs of IBS. What changes to diet are needed? Keep a diary of what you eat and how your body responds. This way you can figure out if anything you eat makes your signs better or worse. Talk to your doctor about it. Your doctor may suggest these changes. Be sure to pay attention to how your signs change with each one. ? Eat high-fiber foods like whole grains, fruits, and vegetables. ? Limit foods that can make you have gas. You may want to avoid onion, cabbage, [place] sprouts, dried beans, lentils, broccoli, and cauliflower. ? Limit foods and drinks with artificial sweeteners. This includes foods with aspartame, sorbitol, and mannitol. ? Limit milk products such as milk, ice cream, and some yogurts. See if this changes your signs. ? Avoid drinks with caffeine, such as coffee and tea. Avoid beer, wine, and mixed drinks (alcohol). ? Avoid foods that make you feel worse. When do I need to call the doctor? Change in your bowel movements that does not go away Blood in your stool Throwing up and loose stools for more than 24 hours You are not feeling better in 2 to 3 days or you are feeling worse Teach Back: Helping You Understand The Teach Back Method helps you understand the information we are giving you. The idea is simple. After talking with the staff, tell them in your own words what you were just told. This helps to make sure the staff has covered each thing clearly. It also helps to explain things that may have been a bit confusing. Before going home, make sure you are able to do these: I can tell you about my condition. I can tell you how I will cope with stress. I can tell you what I will do if I have blood in my bowel movements or a change in my bowel movements that does not go away. Where can I learn more? [employer] [place] https://daa.asn.au/jeqce-gunqsj-pme-you/frozv-uxfnus-jgui-facts/medical/a-guide- qv-hgubauofr-lssyq-syndrome/ International Foundation for Functional Gastrointestinal Disorders http://www.aboutibs.org/jhbua-ojt-sqshrmgg-main.html National Digestive Diseases Information Clearinghouse http://digestive.niddk.nih.gov/ddiseases/pubs/ibs/#help Last Reviewed Date 2016-12-06 Consumer Information Use and Disclaimer This information is not specific medical advice and does not replace information you receive from your health care provider. This is only a brief summary of general information. It does NOT include allinformation about conditions, illnesses, injuries, tests, procedures, treatments, therapies, discharge instructions or life-style choices that may apply to you. You must talk with your health care provider for complete information about your health and treatment options. This information should not beused to decide whether or not to accept your health care providers advice, instructions or recommendations. Only your health care provider has the knowledge and training to provide advice that isright for you. Copyright Copyright 2018 [employer] and its affiliates and/or licensors. All rights reserved. documented in this encounter Progress Notes Gina Steiner NP - 02/27/2019 9:40 AM EDT PATIENT: Tim Felton : 1980 DATE OF SERVICE: 02/27/2019 REFERRING PRACTITIONER: Иван Lopez PRIMARY CARE PROVIDER: Rafael Joy CHIEF COMPLAINT: Chief Complaint Patient presents with ER F/U Follow-up to recent Tx at [facility] ER for lower abdominal pain, cramping & BRBPR; diagnosed with colitis. Subjective HISTORY OF PRESENT ILLNESS: Tim Felton is a 39-y.o. male who presents for a ER follow-up with abdominal pain. Pain is located in the right lower quadrant without radiation. The pain is described as burning. Onset was vague several days ago. Symptoms have been gradually improving. Aggravating factors: movement and sitting up. Alleviating factors: none. Associated symptoms: none. He reports having been seen at [facility] 11 days ago, had a CT which shoed a questionable left sided bowel wall thickening, he was treated for infectious colitis and sent home. CBC, CMP were normal. He reports the Cipro and Flagyl did not help the pain and his pain is predominantly right sided. He reports a burning pain with bowel movements and bearing down as well as sitting up. He stopped his IBS medication Lomotil as he was "scared to take it." The patient denies anemia, anorexia, arthralgias, belching, bloating, chills, constipation, dysuria,fever, flatus, headache, hematochezia, hematemesis, hematuria, malnutrition, melena, myalgias, nausea, sweats, vomiting and weight loss. Last colonoscopy 2015 unremarkable, no evidence of inflammation of the entire colon. Past Medical History: Diagnosis Date GERD (gastroesophageal reflux disease) High cholesterol Past Surgical History: Procedure Laterality Date COLONOSCOPY N/A 01/17/2016 Procedure: COLONOSCOPY with biopsies; Surgeon: Tim Olsen MD [facility]; Location: [facility] MAIN OR COLONOSCOPY DIAGNOSTIC approx. [...] pantoprazole (PROTONIX) 40 MG Oral Tab EC Take 1 Tab by mouth DAILY. Quetiapine Fumarate (SEROQUEL) 50 MG Oral Tab take 1 to 2 tablets by mouth once daily at bedtime No current facility-administered medications for this visit. Allergies Allergen Reactions Compazine Cardiac Reaction Bradycardia Adhesive [Tape: Silk Or Adhesive] Rash Rash & burning Social History Socioeconomic History Marital status: Single [...] file Gets together: Not on file Attends gnosticist service: Not on file Active member of [...] Social History Narrative Living with parents in [place] One daughter age 6 Has girlfriend . Unemployed. Disabled by irritable bowel syndrome. REVIEW OF SYSTEMS: All remaining review of systems was negative except for as noted in the history of present illness/subjective. Objective PHYSICAL EXAMINATION: VITALS: BP 118/80 | Pulse 66 | Temp 96 F (35.6 C) | Ht 5' 11" ( 1.803 m) | Wt 170 lb (77.1 kg) | BMI 23.71 kg/m Body mass index is 23.71 kg/m. GENERAL: alert, oriented, no acute distress. HEENT: No scleral icterus, MMM Psych: Affect normal Neck: no lymphadenopathy LUNGS: clear to auscultation bilaterally. HEART: regular rhythm, no murmurs, no gallops, no rubs. ABDOMEN: general exam: soft, RLQ-tender, non-distended, without masses or organomegaly, normal active bowel sounds, Malave's sign negative. Extrmities: no edema Skin: clear Neuro: gait normal, a&o x 3 RECTAL: exam deferred. IMPRESSION: ICD-9-CM ICD-10-CM 1. Irritable bowel syndrome with diarrhea 564.1 K58.0 2. RLQ abdominal pain 789.03 R10.31 Abdominal pain, likely secondary to IBS vs musculoskeletal etiology. Plan PLAN: Patient Instructions Restart either the Lomotil as discussed If no improvement with the above would suggest a repeat colonoscopy Follow up based on the above Thank you for choosing the [facility] for your needs today! -Gina Steiner N.P. , Please call if you need to cancel or change your appt. time. Thank you for choosing [facility] for your health care needs, and for consulting with [facility] today. You may receive a survey following [...] only take a few minutes to complete. Patient Education Irritable Bowel Syndrome Discharge Instructions About this topic Irritable bowel syndrome, or IBS, is a common long-term health problem of your belly. It does not cause swelling and does not lead to a more serious problem. The cause of IBS is not clear. There is no cure for IBS. Care focuses on how to control the signs. Signs may be mild to very bad. They can last for weeks or months. The main signs are: Belly pain Belly fullness Gassy feeling Bloating Upset stomach Loose or hard stools Loss of appetite What care is needed at home? Ask your doctor what you need to do when you go home. Make sure you ask questions if you do not understand what the doctor says. This way you will know what you need to do. Ask your doctor and learn how to cope with stress. This may include: Relaxation Doing an activity to relieve stress Counseling Joining a support group What follow-up care is needed? Your doctor may ask you to make visits to the office to check on your progress. Be sure to keep these visits. What drugs may be needed? The doctor may order drugs to: Help with pain Control belly muscle spasms Treat hard or loose stools and signs Fight an infection Be sure to take all drugs as ordered by your doctor. Will physical activity be limited? Physical activity may not be limited. You may be limited by your signs. They may keep you from goingto school or work and going to social events. Regular workouts can help improve your bowel function and other signs of IBS. What changes to diet are needed? Keep a diary of what you eat and how your body responds. This way you can figure out if anything you eat makes your signs better or worse. Talk to your doctor about it. Your doctor may suggest these changes. Be sure to pay attention to how your signs change with each one. ? Eat high-fiber foods like whole grains, fruits, and vegetables. ? Limit foods that can make you have gas. You may want to avoid onion, cabbage, [place] sprouts, dried beans, lentils, broccoli, and cauliflower. ? Limit foods and drinks with artificial sweeteners. This includes foods with aspartame, sorbitol, and mannitol. ? Limit milk products such as milk, ice cream, and some yogurts. See if this changes your signs. ? Avoid drinks with caffeine, such as coffee and tea. Avoid beer, wine, and mixed drinks (alcohol). ? Avoid foods that make you feel worse. When do I need to call the doctor? Change in your bowel movements that does not go away Blood in your stool Throwing up and loose stools for more than 24 hours You are not feeling better in 2 to 3 days or you are feeling worse Teach Back: Helping You Understand The Teach Back Method helps you understand the information we are giving you. The idea is simple. After talking with the staff, tell them in your own words what you were just told. This helps to make sure the staff has covered each thing clearly. It also helps to explain things that may have been a bit confusing. Before going home, make sure you are able to do these: I can tell you about my condition. I can tell you how I will cope with stress. I can tell you what I will do if I have blood in my bowel movements or a change in my bowel movements that does not go away. Where can I learn more? [employer] [place] https://daa.asn.au/qcaas-yjdolz-diw-you/mdauw-ylzymh-aper-facts/medical/a-guide- bk-nqsekpwle-xfkxv-syndrome/ International Foundation for Functional Gastrointestinal Disorders http://www.aboutibs.org/wyfbv-her-mwatrges-main.html National Digestive Diseases Information Clearinghouse http://digestive.niddk.nih.gov/ddiseases/pubs/ibs/#help Last Reviewed Date 2016-12-06 Consumer Information Use and Disclaimer This information is not specific medical advice and does not replace information you receive from your health care provider. This is only a brief summary of general information. It does NOT include allinformation about conditions, illnesses, injuries, tests, procedures, treatments, therapies, discharge instructions or life-style choices that may apply to you. You must talk with your health care provider for complete information about your health and treatment options. This information should not beused to decide whether or not to accept your health care providers advice, instructions or recommendations. Only your health care provider has the knowledge and training to provide advice that isright for you. Copyright Copyright 2018 [employer] and its affiliates and/or licensors. All rights reserved. Author: Gina Steiner NP 02/27/2019 10:13 documented in this encounter Plan of Treatment Date Type Specialty Care Team Description 03/05/2019 Office Visit Physical Therapy Annita Robert, PT [address] [place] [address] [phone] 03/10/2019 Office Visit Physical Therapy Annita Robert, PT [address] [place] [address] [phone] 03/12/2019 Office Visit Physical Therapy Annita Robert, PT [address] [place] [address] [phone] 03/17/2019 Office Visit Physical Therapy Annita Robert, PT [address] [place] [address] [phone] 03/19/2019 Office Visit Physical Therapy Annita Robert, PT [address] [place] [address] [phone] 07/10/2019 Office Visit Gastroenterology Gina Steiner NP [address] [address] [phone] Health Maintenance Due Date Last Done Comments [...] with diarrhea - Primary Irritable bowel syndrome RLQ abdominal pain Abdominal pain, right lower quadrant documented in this encounter Additional Health Concerns [...] Felton Personal/Family [address] (Home) [place], [id number] (Work) documented as of this encounter
[2019-03-08 23:40] LABS: ABS Basophils 0.1 10^3/ul (0-0.2); ABS Eosinophils 0.1 10^3/ul (0-0.6); ABS Lymphocytes 1.2 10^3/ul (1.0-4.8); ABS Monocytes 0.3 10^3/ul (0-0.8); ABS Neutrophils 4.1 10^3/ul (1.5-7.7); Eosinophil % 0.9 %; Hematocrit 51 % (42-52); Hemoglobin 17.3 g/dL (14.0-18.0); Lymphocyte % 21.4 %; Mean Corpuscular HGB Conc 34 g/dL (31-36); Mean Corpuscular Hemoglobin 30 pg (27-31); Mean Corpuscular Volume 88 fL (80-94); Nucleated Red Blood Cells % 0.2; Platelet Count 247 10^3/uL (150-450); Red Blood Count 5.81 10^6 /uL (4.18-5.48); Red Cell Distribution Width 14 % (10-15); White Blood Count 5.8 10^3/uL (3.5-10.8)
[2019-03-08 23:57] LABS: Albumin 4.5 g/dL (3.2-5.2); Albumin/Globulin Ratio 1.6 (1-3); C Reactive Protein 1.16 mg/L (<8.01); Calcium 9.8 mg/dL (8.6-10.3); EGFR Non-African American 88.4 (>60); Globulin 2.8 g/dL (2-4); Potassium 4.1 mmol/L (3.5-5.0); Total Bilirubin 0.5 mg/dL (0.2-1.0); Total Protein 7.3 g/dL (6.4-8.9)
--- NOTE | 2019-03-09 00:42 | ED ---
GI/ HPI - HPI Summary HPI Summary: 39 year old male presents with rectal bleed today. He states that he has history of this. He states 3 weeks ago was seen for same and had CT showed colitis. He was treated as infectious colitis with Cipro and Flagyl. He states medication where rough on his intestines. He states that he felt a little bit better after they were done. He states he followed up with GI and was told that he'll need a colonoscopy. He states that today he started having intense cramping abdominal pain. He states it was in his lower abdomen. He states that he had his chronic diarrhea. No nausea vomiting. No fevers. No urinary symptoms. He states that he had a bowel movement that was all bright red blood. Denies any history of hemorrhoids. - History of Current Complaint Chief Complaint: EDGIBleed Time Seen by Provider: 03/09/19 00:28 Stated Complaint: RECTAL BLEEDING FEELS WEAK PER PT Pain Intensity: 5 - Allergy/Home Medications Allergies/Adverse Reactions: Allergies Allergy/AdvReac Type Severity Reaction Status Date / Time adhesive Allergy See Comment Verified 03/09/19 00:39 prochlorperazine Allergy See Comment Verified 03/09/19 00:39 PMH/Surg Hx/FS Hx/Imm Hx Endocrine/Hematology History: Denies: Hx Diabetes, Hx Thyroid Disease Cardiovascular History: Denies: Hx Hypertension Respiratory History: Denies: Hx Asthma, Hx Chronic Obstructive Pulmonary Disease (COPD) GI History: Reports: Other GI Disorders - Negative: hemorrhoids Denies: Hx Ulcer Psychiatric History: Denies: Hx Eating Disorder - Surgical History Surgery Procedure, Year, and Place: Left Knee, exploratory and reconstructive. right wrist - exploratory and wafer procedure. 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 Negative: Vomiting, Nausea All Other Systems Reviewed And Are Negative: Yes Physical Exam Triage Information Reviewed: Yes Vital Signs On Initial Exam: Initial Vitals Temp Pulse Resp BP Pulse Ox 98.2 F 114 18 144/103 99 03/08/19 21:56 03/08/19 21:56 03/08/19 21:56 03/08/19 21:56 03/08/19 21:56 Vital Signs Reviewed: Yes Appearance: Positive: Well-Appearing Skin: Positive: Warm, Dry Head/Face: Positive: Normal Head/Face Inspection Eyes: Positive: Normal, Conjunctiva Clear ENT: Positive: Pharynx normal Respiratory/Lung Sounds: Positive: Clear to Auscultation, Breath Sounds Present Cardiovascular: Positive: Normal, RRR Abdomen Description: Positive: Nontender, Soft Bowel Sounds: Positive: Present Musculoskeletal: Positive: Normal Neurological: Positive: Normal Psychiatric: Positive: Normal Procedures - Sedation Patient Received Moderate/Deep Sedation with Procedure: No Diagnostics - Vital Signs Vital Signs Temp Pulse Resp BP Pulse Ox 03/09/19 00:09 98.8 F 96 18 134/102 97 03/08/19 21:56 98.2 F 114 18 144/103 99 - Laboratory Lab Results: Lab Results 03/08/19 03/08/19 03/08/19 Range/Units 23:36 23:36 23:36 WBC 5.8 (3.5-10.8) 10^3/uL RBC 5.81 H (4.18-5.48) 10^6 /uL Hgb 17.3 (14.0-18.0) g/dL Hct 51 (42-52) % MCV 88 (80-94) fL MCH 30 (27-31) pg MCHC 34 (31-36) g/dL RDW 14 (10-15) % Plt Count 247 (150-450) 10^3/uL MPV 8.0 (7.4-10.4) fL Neut % (Auto) 71.3 % Lymph % (Auto) 21.4 % Merrick % (Auto) 5.1 % Eos % (Auto) 0.9 % Baso % (Auto) 1.3 % Absolute Neuts (auto) 4.1 (1.5-7.7) 10^3/ul Absolute Lymphs (auto) 1.2 (1.0-4.8) 10^3/ul Absolute Monos (auto) 0.3 (0-0.8) 10^3/ul Absolute Eos (auto) 0.1 (0-0.6) 10^3/ul Absolute Basos (auto) 0.1 (0-0.2) 10^3/ul Absolute Nucleated RBC 0.0 10^3/ul Nucleated RBC % 0.2 Sodium 139 (135-145) mmol/L Potassium 4.1 (3.5-5.0) mmol/L Chloride 105 (101-111) mmol/L Carbon Dioxide 28 (22-32) mmol/L Anion Gap 6 (2-11) mmol/L BUN 15 (6-24) mg/dL Creatinine 0.94 (0.67-1.17) mg/dL Est GFR ( Amer) 107.0 (>60) Est GFR (Non-Af Amer) 88.4 (>60) BUN/Creatinine Ratio 16.0 (8-20) Glucose 89 (70-100) mg/dL Lactic Acid 0.5 (0.5-2.0) mmol/L Calcium 9.8 (8.6-10.3) mg/dL Total Bilirubin 0.50 (0.2-1.0) mg/dL AST 40 H (13-39) U/L ALT 88 H (7-52) U/L Alkaline Phosphatase 57 (34-104) U/L C-Reactive Protein 1.16 (<8.01) mg/L Total Protein 7.3 (6.4-8.9) g/dL Albumin 4.5 (3.2-5.2) g/dL Globulin 2.8 (2-4) g/dL Albumin/Globulin Ratio 1.6 (1-3) Result Diagrams: 03/08/19 23:36 03/08/19 23:36 Lab Statement: Any lab studies that have been ordered have been reviewed, and results considered in the medical decision making process. Re-Evaluation - Re-Evaluation First Eval Re-Evaluation Time: 00:51 Comment: discussed giving fluids and CT and patient declined GIGU Course/Dx - Course Course Of Treatment: 39 year old male presents with rectal bleed today. He states that he has history of this. He states 3 weeks ago was seen for same and had CT showed colitis. He was treated as infectious colitis with Cipro and Flagyl. He states medication where rough on his intestines. He states that he felt a little bit better after they were done. He states he followed up with GI and was told that he'll need a colonoscopy. He states that today he started having intense cramping abdominal pain. He states it was in his lower abdomen. He states that he had his chronic diarrhea. No nausea vomiting. No fevers. No urinary symptoms. He states that he had a bowel movement that was all bright red blood. Denies any history of hemorrhoids. On exam nontender abdomen. White blood count normal. h/h normal. CRP normal. Rectal occult blood is positive and has gross blood on exam. No hemorrhoid noted. Vitals are stable in the room. offered to do an IV fluids and a CT and patient declined. Discussed CT will probably show colitis but unlikely to be infectious so will need colonoscopy to confirm why he is getting rectal bleed. patient vitals stable here so we'll discharge to have outpatient colonoscopy. Gave strict return precautions. The patient understands and agrees with plan. - Diagnoses Differential Diagnoses - Male: Colitis, Hemorrhoids, Other - IBD Provider Diagnoses: Rectal bleed Discharge ED - Sign-Out/Discharge Documenting (check all that apply): Patient Departure - Discharge Plan Condition: Good Disposition: HOME Patient Education Materials: Rectal Bleeding (ED) Referrals: Rafael Joy MD [Primary Care Provider] - Additional Instructions: follow up with GI within 5 days Take tyenlol as needed for pain Return to ED if develop any new or worsening symptoms - Billing Disposition and Condition Condition: GOOD Disposition: Home
[2019-03-09 00:58] VITALS: BP 137/89
== END 2019-03-09 00:57 | disposition home or self-care (01) ==
LOC: ED 21:54
DX: K62.5 Hemorrhage of anus and rectum (principal); F17.210 Nicotine dependence, cigarettes, uncomplicated; Z86.19 Personal history of other infectious and parasitic diseases
CPT/HCPCS: 36415; 80053; 82272; 83605; 85025; 86140; 99282

== ENCOUNTER 2019-06-24 13:42 | Emergency (ER) | payer MEDICAID ==
[2019-06-24 16:08] VITALS: BP 118/86
--- NOTE | 2019-06-24 16:58 | UC ---
Ear Complaint HPI - HPI Summary HPI Summary: Woke up to redness and edema to left eye. Painful and itchy. - History of Current Complaint Chief Complaint: UCEye Stated Complaint: SWOLLEN EYE Time Seen by Provider: 06/24/19 16:10 Pain Intensity: 2 - Allergies/Home Medications Allergies/Adverse Reactions: Allergies Allergy/AdvReac Type Severity Reaction Status Date / Time adhesive Allergy See Comment Verified 06/24/19 16:08 prochlorperazine Allergy See Comment Verified 06/24/19 16:08 PMH/Surg Hx/FS Hx/Imm Hx Other History Of: Hepatitis C - Surgical History Surgical History: Yes Surgery Procedure, Year, and Place: Left Knee, exploratory and reconstructive. right wrist - exploratory and wafer procedure. 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 Negative: Blurred Vision, Diplopia, Drainage, Eye Redness Respiratory: Positive: Negative Cardiovascular: Positive: Negative Gastrointestinal: Positive: Negative Neurological: Positive: Negative Physical Exam Triage Information Reviewed: Yes Appearance: Well-Appearing, No Pain Distress, Well-Nourished Vital Signs: Initial Vital Signs Temp 98.8 F 06/24/19 16:04 Pulse 104 06/24/19 16:04 Resp 20 06/24/19 16:04 BP 118/86 06/24/19 16:04 Pulse Ox 100 06/24/19 16:04 Discharge ED - Discharge Plan Condition: Stable Disposition: HOME Referrals: Rafael Joy MD [Primary Care Provider] - If Needed Lai Ashton MD [Medical Doctor] - If Needed Additional Instructions: YOUR PRESENTATION TODAY SEEMS BENIGN. THE SWELLING IN YOUR LEFT LOWER EYELID IS ALMOST COMPLETELY GONE. CONSIDER TAKING AN OTC ANTIHISTAMINE ONCE DAILY TO COVER FOR ANY POSSIBLE ALLERGIC COMPONENT. COOL COMPRESSES NEEDED. YOU MAY USE SALINE EYEDROPS IF YOU LIKE HOWEVER NO ACUTE INTERVENTION IS INDICATED TODAY BASED ON YOUR PRESENTATION. FOLLOW-UP WITH AN EYE DOCTOR IF YOUR SYMPTOMS RECUR. - Billing Disposition and Condition Condition: STABLE Disposition: Home
--- NOTE | 2019-06-24 17:06 | UC ---
Eye Complaint HPI - HPI Summary HPI Summary: WOKE UP THIS MORNING WITH LEFT LOWER EYELID SWOLLEN AND SLIGHTLY DARK IN COLOR. HAD SOME DISCOMFORT AT THE TIME. SEEMS TO HAVE MUCH IMPROVED OVER THE COURSE OF THE DAY. PATIENT DOES NOT WEAR CONTACT LENSES. DENIES ANY TRAUMA. NO VISUAL DISTURBANCES, DRAINAGE, FOREIGN BODY SENSATION - History of Current Complaint Chief Complaint: UCEye Stated Complaint: SWOLLEN EYE Time Seen by Provider: 06/24/19 16:10 Hx Obtained From: Patient Onset/Duration: Sudden Onset, Lasting Hours, Resolved - MOSTLY Timing: Constant Severity Initially: Moderate Severity Currently: Mild Pain Intensity: 2 Pain Scale Used: 0-10 Numeric Location of Injury: Eye Lid (lower) - LEFT Aggravating Factor(s): Nothing Associated Signs And Symptoms: Positive: Negative - Allergies/Home Medications Allergies/Adverse Reactions: Allergies Allergy/AdvReac Type Severity Reaction Status Date / Time adhesive Allergy See Comment Verified 06/24/19 16:08 prochlorperazine Allergy See Comment Verified 06/24/19 16:08 PMH/Surg Hx/FS Hx/Imm Hx Other GI/ History: IBS Other History Of: Hepatitis C - Surgical History Surgical History: Yes Surgery Procedure, Year, and Place: Left Knee, exploratory and reconstructive. right wrist - exploratory and wafer procedure. 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 Negative: Blurred Vision, Diplopia, Drainage, Eye Redness, Photophobia Respiratory: Positive: Negative Cardiovascular: Positive: Negative Gastrointestinal: Positive: Negative Physical Exam Triage Information Reviewed: Yes Appearance: Well-Appearing, No Pain Distress, Well-Nourished Vital Signs: Initial Vital Signs Temp 98.8 F 06/24/19 16:04 Pulse 104 06/24/19 16:04 Resp 20 06/24/19 16:04 BP 118/86 06/24/19 16:04 Pulse Ox 100 06/24/19 16:04 Vital Signs Reviewed: Yes Eyes: Positive: Conjunctiva Clear, Other: - PERRL, EOMI. LEFT LOWER EYELID WITH TRACE EDEMA. NON TENDER.. Negative: Discharge ENT: Positive: Hearing grossly normal Neck: Positive: Supple Respiratory: Positive: No respiratory distress, No accessory muscle use Cardiovascular: Positive: Pulses Normal Abdomen Description: Positive: Soft Musculoskeletal: Positive: No Edema Neurological: Positive: Alert Psychological: Positive: Age Appropriate Behavior Skin: Negative: Rashes Eye Complaint Course/Dx - Course Course Of Treatment: PATIENT'S SYMPTOMS HAVE ALMOST COMPLETELY RESOLVED AT THE TIME OF EXAM. HE HAS TRACE EDEMA, IF ANY, AND EVER SO SLIGHT DISCOLORATION OF HIS LEFT LOWER EYELID COMPARED TO HIS RIGHT LOWER EYELID. HE HAS DARK CIRCLES UNDER HIS EYES AT BASELINE. NO ACUTE INTERVENTION INDICATED AT THIS TIME. PATIENT AGREES. WILL FOLLOW-UP WITH AN EYE DOCTOR IF HIS SYMPTOMS RETURN. - Differential Dx/Diagnosis Provider Diagnosis: Edema of left lower eyelid Discharge ED - Sign-Out/Discharge Documenting (check all that apply): Patient Departure All imaging exams completed and their final reports reviewed: No Studies - Discharge Plan Condition: Stable Disposition: HOME Referrals: Rafael Joy MD [Primary Care Provider] - If Needed Lai Ashton MD [Medical Doctor] - If Needed Additional Instructions: YOUR PRESENTATION TODAY SEEMS BENIGN. THE SWELLING IN YOUR LEFT LOWER EYELID IS ALMOST COMPLETELY GONE. CONSIDER TAKING AN OTC ANTIHISTAMINE ONCE DAILY TO COVER FOR ANY POSSIBLE ALLERGIC COMPONENT. COOL COMPRESSES NEEDED. YOU MAY USE SALINE EYEDROPS IF YOU LIKE HOWEVER NO ACUTE INTERVENTION IS INDICATED TODAY BASED ON YOUR PRESENTATION. FOLLOW-UP WITH AN EYE DOCTOR IF YOUR SYMPTOMS RECUR. - Billing Disposition and Condition Condition: STABLE Disposition: Home
== END 2019-06-24 17:05 | disposition home or self-care (01) ==
LOC: UCEAST 13:42
DX: H02.845 Edema of left lower eyelid (principal); K58.9 Irritable bowel syndrome, unspecified; F17.210 Nicotine dependence, cigarettes, uncomplicated; Z91.09 Other allergy status, other than to drugs and biological substances; Z88.8 Allergy status to other drugs, medicaments and biological substances
CPT/HCPCS: 99211; G0463